=== PATIENT | female | born 1965 | race Caucasian/White ===

== ENCOUNTER 2016-09-02 09:38 | Emergency (ER) | payer MEDICAID ==
[2016-07-19 15:00] VITALS: BMI 27.5
[~2016-09-02 09:38] MED LIST: ASPIRIN325 MG PO; CELEXA40 MG PO; DESERYL100 MG PO; HYDROCHLOROTH12.5 M1 PO; HYDROCODONE-APA1 TAB PO; IBUPROFEN800 MG PO; NEURONTIN 300300 MG PO; PEPCID AC20 MG PO; REMERON15 MG PO; ROXICODONE15 MG PO; VOLTAREN100 MG PO
== END 2016-09-02 12:24 | disposition home or self-care (01) ==
LOC: D.ER 09:38
DX: S80.12XA Contusion of left lower leg, initial encounter (principal); W22.8XXA Striking against or struck by other objects, initial encounter; Y93.89 Activity, other specified; Y92.019 Unspecified place in single-family (private) house as the place of occurrence of the external cause; F17.200 Nicotine dependence, unspecified, uncomplicated

== ENCOUNTER → 2017-04-11 15:40 | Outpatient (CLI) | payer MEDICAID ==
[2016-07-19 15:00] VITALS: BMI 27.5
== END | disposition home or self-care (01) ==
LOC: D.MAMMO 15:00
DX: Z12.31 Encounter for screening mammogram for malignant neoplasm of breast (principal)

== ENCOUNTER → 2017-05-16 17:59 | Outpatient (CLI) | payer MEDICAID ==
[2016-07-19 15:00] VITALS: BMI 27.5
== END | disposition home or self-care (01) ==
LOC: D.MAMMO 10:30
DX: R92.8 Other abnormal and inconclusive findings on diagnostic imaging of breast (principal)

== ENCOUNTER 2017-06-20 00:16 | Emergency (ER) | payer MEDICAID ==
[2016-07-19 15:00] VITALS: BMI 27.5
[2017-06-20 00:51] LABS: BASOPHILS 0.5 % (0-2); EOSINOPHILS 2.8 % (0-7); HEMATOCRIT 42.4 % (36.0-48.0); HEMOGLOBIN 14.6 g/dL (12-16); IMMATURE GRANULOCYTES 0.4 % (0-5); LYMPHOCYTES 39.2 % (15-50); MCH 32.7 pg (26.0-34.0); MCHC 34.4 g/dL (31.0-37.0); MCV 95.1 fL (80.0-100.0); MEAN PLATELET VOLUME 10.6 fL (7.4-10.4); MONOCYTES 6.7 % (2-11); NEUTROPHILS 50.4 % (40-80); PLATELET COUNT 259 10x3/uL (130-400); RBC 4.46 10x6/uL (4.00-5.40); RDW 14.3 % (11.5-14.5); WBC 7.5 10x3/uL (4.8-10.8)
[2017-06-20 01:13] LABS: ALBUMIN 3.5 g/dL (3.4-5.0); ANION GAP 12.5 mmol/L (8-16); BILIRUBIN - TOTAL 0.2 mg/dL (0.2-1.3); CALCIUM 9.2 mg/dL (8.5-10.1); CARBON DIOXIDE 26.6 mmol/L (21.0-32.0); CREATININE - SERUM 0.9 mg/dL (0.6-1.3); POTASSIUM - SERUM 3.1 mmol/L (3.5-5.1); PROTEIN - SERUM 7.1 g/dL (6.4-8.2)
[2017-06-20 01:33] LABS: APPEARANCE CLEAR (CLEAR); BILIRUBIN NEGATIVE (NEGATIVE); COLOR STRAW (YELLOW); GLUCOSE NEGATIVE (NEGATIVE); KETONE NEGATIVE (NEGATIVE); NITRITE NEGATIVE (NEGATIVE); PROTEIN NEGATIVE (NEGATIVE); SPECIFIC GRAVITY 1.005 (1.005-1.020); UROBILINOGEN NORMAL (NORMAL)
[2017-06-20 01:34] LABS: BACTERIA MANY /hpf (NONE SEEN); EPITHELIAL CELLS 0-5 /hpf (0-5); RED CELLS - URINE 0-5 /hpf (0-5); UDS - AMPHET NEGATIVE QUAL (NEGATIVE); UDS - BARB NEGATIVE QUAL (NEGATIVE); UDS - BENZO NEGATIVE QUAL (NEGATIVE); UDS - COCAINE NEGATIVE QUAL (NEGATIVE); UDS - OPIATE NEGATIVE QUAL (NEGATIVE); UDS - PCP NEGATIVE QUAL (NEGATIVE); UDS - THC POSITIVE QUAL (NEGATIVE); WHITE CELLS - URINE 0-5 /hpf (0-5)
== END 2017-06-20 02:39 | disposition home or self-care (01) ==
LOC: D.ER 00:16
PROVIDERS: Emergency Medicine
DX: R55 Syncope and collapse (principal)

== ENCOUNTER 2017-07-27 10:15 | Emergency (ER) | payer MEDICAID ==
[2016-07-19 15:00] VITALS: BMI 27.5
[2017-07-27 10:41] LABS: BASOPHILS 0.3 % (0-2); EOSINOPHILS 1.3 % (0-7); HEMATOCRIT 40.9 % (36.0-48.0); HEMOGLOBIN 14.3 g/dL (12-16); IMMATURE GRANULOCYTES 0.4 % (0-5); LYMPHOCYTES 26.5 % (15-50); MCH 33.5 pg (26.0-34.0); MCV 95.8 fL (80.0-100.0); MEAN PLATELET VOLUME 11.3 fL (7.4-10.4); MONOCYTES 5.5 % (2-11); PLATELET COUNT 269 10x3/uL (130-400); RBC 4.27 10x6/uL (4.00-5.40); RDW 13.8 % (11.5-14.5); WBC 11.4 10x3/uL (4.8-10.8)
[2017-07-27 10:58] LABS: ALBUMIN 3.8 g/dL (3.4-5.0); ANION GAP 12.1 mmol/L (8-16); BILIRUBIN - TOTAL 0.23 mg/dL (0.2-1.3); CALCIUM 9.4 mg/dL (8.5-10.1); CARBON DIOXIDE 28.4 mmol/L (21.0-32.0); CREATININE - SERUM 0.9 mg/dL (0.6-1.3); POTASSIUM - SERUM 3.5 mmol/L (3.5-5.1); PROTEIN - SERUM 7.4 g/dL (6.4-8.2)
[2017-07-27 12:02] LABS: APPEARANCE CLEAR (CLEAR); BILIRUBIN NEGATIVE (NEGATIVE); COLOR YELLOW (YELLOW); GLUCOSE NEGATIVE (NEGATIVE); KETONE NEGATIVE (NEGATIVE); NITRITE NEGATIVE (NEGATIVE); PROTEIN NEGATIVE (NEGATIVE); SPECIFIC GRAVITY 1.005 (1.005-1.020); UROBILINOGEN NORMAL (NORMAL)
[2017-07-27 12:05] LABS: UDS - AMPHET NEGATIVE QUAL (NEGATIVE); UDS - BARB NEGATIVE QUAL (NEGATIVE); UDS - BENZO NEGATIVE QUAL (NEGATIVE); UDS - COCAINE NEGATIVE QUAL (NEGATIVE); UDS - OPIATE NEGATIVE QUAL (NEGATIVE); UDS - PCP NEGATIVE QUAL (NEGATIVE); UDS - THC POSITIVE QUAL (NEGATIVE)
== END 2017-07-27 15:50 | disposition short-term general hospital (02) ==
LOC: D.ER 10:15
PROVIDERS: Emergency Medicine
DX: F32.9 Major depressive disorder, single episode, unspecified (principal); Z86.59 Personal history of other mental and behavioral disorders; R45.851 Suicidal ideations

== ENCOUNTER 2017-08-04 22:54 | Emergency (ER) | payer MEDICAID ==
[2016-07-19 15:00] VITALS: BMI 27.5
[2017-08-04 23:28] LABS: APPEARANCE CLEAR (CLEAR); BILIRUBIN NEGATIVE (NEGATIVE); COLOR YELLOW (YELLOW); GLUCOSE NEGATIVE (NEGATIVE); KETONE NEGATIVE (NEGATIVE); NITRITE NEGATIVE (NEGATIVE); PROTEIN NEGATIVE (NEGATIVE); SPECIFIC GRAVITY 1.015 (1.005-1.020); UROBILINOGEN NORMAL (NORMAL)
[2017-08-04 23:36] LABS: UDS - AMPHET NEGATIVE QUAL (NEGATIVE); UDS - BARB NEGATIVE QUAL (NEGATIVE); UDS - BENZO NEGATIVE QUAL (NEGATIVE); UDS - COCAINE NEGATIVE QUAL (NEGATIVE); UDS - OPIATE NEGATIVE QUAL (NEGATIVE); UDS - PCP NEGATIVE QUAL (NEGATIVE); UDS - THC NEGATIVE QUAL (NEGATIVE)
[2017-08-04 23:42] LABS: BASOPHILS 0.7 % (0-2); EOSINOPHILS 1.6 % (0-7); HEMATOCRIT 41.5 % (36.0-48.0); HEMOGLOBIN 14.3 g/dL (12-16); IMMATURE GRANULOCYTES 0.1 % (0-5); MCH 33.2 pg (26.0-34.0); MCHC 34.5 g/dL (31.0-37.0); MCV 96.3 fL (80.0-100.0); MONOCYTES 5.9 % (2-11); NEUTROPHILS 52.7 % (40-80); PLATELET COUNT 206 10x3/uL (130-400); RBC 4.31 10x6/uL (4.00-5.40); RDW 13.3 % (11.5-14.5)
[2017-08-05 00:04] LABS: ALBUMIN 3.5 g/dL (3.4-5.0); BILIRUBIN - TOTAL 0.15 mg/dL (0.2-1.3); CALCIUM 8.8 mg/dL (8.5-10.1); CARBON DIOXIDE 26.6 mmol/L (21.0-32.0); POTASSIUM - SERUM 3.6 mmol/L (3.5-5.1); PROTEIN - SERUM 7.1 g/dL (6.4-8.2)
== END 2017-08-05 04:48 | disposition home or self-care (01) ==
LOC: D.ER 22:54
PROVIDERS: Family Medicine
DX: R45.851 Suicidal ideations (principal); Z86.59 Personal history of other mental and behavioral disorders

== ENCOUNTER → 2017-11-28 16:49 | Outpatient (CLI) | payer MEDICAID ==
[2016-07-19 15:00] VITALS: BMI 27.5
== END | disposition home or self-care (01) ==
LOC: D.MAMMO 10:30
DX: R92.8 Other abnormal and inconclusive findings on diagnostic imaging of breast (principal)

== ENCOUNTER 2017-12-16 17:02 | Emergency (ER) | payer MEDICAID ==
[2016-07-19 15:00] VITALS: BMI 27.5
[2017-12-16 17:49] LABS: BASOPHILS 0.5 % (0-2); HEMATOCRIT 31.5 % (36.0-48.0); HEMOGLOBIN 10.6 g/dL (12-16); LYMPHOCYTES 31.8 % (15-50); MCH 32.1 pg (26.0-34.0); MCHC 33.7 g/dL (31.0-37.0); MCV 95.5 fL (80.0-100.0); MONOCYTES 8.4 % (2-11); NEUTROPHILS 54.3 % (40-80); PLATELET COUNT 523 10x3/uL (130-400); RDW 14.6 % (11.5-14.5); WBC 8.2 10x3/uL (4.8-10.8)
== END 2017-12-16 19:07 | disposition home or self-care (01) ==
LOC: D.ER 17:02
PROVIDERS: Emergency Medicine
DX: L76.22 Postprocedural hemorrhage of skin and subcutaneous tissue following other procedure (principal); F17.200 Nicotine dependence, unspecified, uncomplicated

== ENCOUNTER 2018-06-02 23:56 | Inpatient (IN) | payer MEDICAID ==
[~2018-06-02] VITALS: Ht 168.9 cm; Wt 77.6 kg
--- NOTE | ~2018-06-02 | MORECARE ---
CASE MANAGEMENT DISCHARGE SUMMARY PATIENT: GERRY BERNAL DIANDRA UNIT: [id number] ADM DATE: 06/03/18 AGE: 53 : 65 SEX: F ROOM/BED: D.2312 AUTHOR: BALJIT SILVEIRA PHYSICIAN: REFERRING PHYSICIAN: GIL DAVIS MD DATE OF SERVICE: 06/05/18 Discharge Plan Patient Name: GERRY BERNAL [facility] [facility] 1965 Planned Disposition: Anticipated Discharge Date: Discharge Date: 06/04/2018 Expected LOS: Initial Reviewer: [email or web address] Initial Review Date: 06/03/2018 Generated: 06/05/18 7:34 pm Comments DCP- Discharge Planning Updated by [email or web address]: Rebecca Derrick on 06/04/18 1:[address] CM spoke with patient she agrees to go to inpatient psychiatric facility. Transfer center notified and clinical faxed. CM awaiting placement notification. CM will continue to follow and assist as needed with discharge palnning / needs. Last DP export: 06/04/18 1:44 p Patient Name: GERRY BERNAL Page [id number] at 1834 All edits/amendments must be made on the electronic document DICTATION DATE: 06/05/181833 COUPLING MACHINE OPERATOR: COOPER 06/05/181833 RPT#: [id number] DC DATE:06/04/18 STATUS: DIS IN [facility] [address] [place] [address] END OF REPORT
--- NOTE | ~2018-06-02 | CN ---
PATIENT NAME:GERRY BERNAL MEDICAL RECORD: [id number] : 65 LOCATION:[facility].2312 ADMIT DATE: 06/03/18 ACCOUNT: [id number] CONSULTING PHYSICIAN: KRISTINA REARDON MD REFERRING PHYSICIAN: GIL DAVIS MD DATE OF CONSULTATION: 06/03/2018 IDENTIFYING DATA: The patient is 53 years old and she is admitted to the hospital on a voluntary basis secondary to an overdose. CHIEF COMPLAINT: The patient endorses numerous neurovegetative symptoms and numerous psychosocial stressors. She apparently deliberately took an overdose of Klonopin and Zanaflex with the intention of killing herself. She stated she wanted to kill herself in the Emergency Room. She was found by one of her children unresponsive and they called the emergency services. The patient is severely depressed, very angry, has numerous complaints about her family and their behavior and her own personal situation, which she is unhappy about. MENTAL STATUS EXAMINATION: The patient is awake, alert and oriented to person, place, time and situation. Her mood is depressed. Her affect is constricted. Thought processes are circumstantial. Memory, concentration, and abstraction abilities are moderately impaired, and she denies any active intent to harm herself or others at this time. She also denies psychotic symptoms. ASSESSMENT: 1. Status post polysubstance overdose. 2. Major depression. 3. Probable cluster B personality disorder. PLAN: The patient at this time has taken a very serious overdose and continues to have no improvement or insight about her situation or the psychosocial stressors associated with it. She does have a history of previous overdose and in my opinion needs to be sent to inpatient psychiatric care once medically stabilized. Her long-term prognosis will be guarded and will be largely based upon the results and outcome of her treatment. TRANSINT:[id number] Voice Confirmation ID: [id number] DOCUMENT ID: [id number] KRISTINA REARDON MD at 1017 CC: [id number] DICTATION DATE: 06/03/18 1245 SENIOR STAFF PSYCHOLOGIST: 06/03/18 1307 ADM IN [place] [id number] [place] [address]
--- NOTE | ~2018-06-02 | MORECARE ---
CASE MANAGEMENT DISCHARGE SUMMARY PATIENT: GERRY BERNAL DIANDRA UNIT: [id number] ADM DATE: 06/03/18 AGE: 53 : 65 SEX: F ROOM/BED: D.2312 AUTHOR: BALJIT SILVEIRA PHYSICIAN: REFERRING PHYSICIAN: GIL DAVIS MD DATE OF SERVICE: 06/04/18 Discharge Plan Patient Name: GERRY BERNAL [facility] : 1965 Planned Disposition: Anticipated Discharge Date: Discharge Date: Expected LOS: Initial Reviewer: [email or web address] Initial Review Date: 06/03/2018 Generated: 06/04/18 3:44 pm Comments DCP- Discharge Planning Updated by [email or web address]: Rebecca Derrick on 06/04/18 1:[address] CM spoke with patient she agrees to go to inpatient psychiatric facility. Transfer center notified and clinical faxed. CM awaiting placement notification. CM will continue to follow and assist as needed with discharge palnning / needs. External Providers External Provider: [facility] Next Contact Date: Service Request Date: Service Type: Resolution: Reviewer: Comments: Patient Name: GERRY BERNAL Page [phone] at 1444 All edits/amendments must be made on the electronic document DICTATION DATE: 06/04/181442 ENGINE EMISSION TECHNICIAN: COOPER 06/04/18 1443 RPT#: [id number] DC DATE: STATUS: ADM IN [facility] [address] [place] [address] END OF REPORT
[2018-06-03] VITALS (86 sets, daily range): BP systolic 68–136; BP diastolic 35–92; Ht 168.9 cm; Wt 77.6 kg
[2018-06-03 00:14] LABS: BASOPHILS 0.5 % (0-2); EOSINOPHILS 1.2 % (0-7); HEMATOCRIT 33.7 % (36.0-48.0); HEMOGLOBIN 11.5 g/dL (12-16); IMMATURE GRANULOCYTES 0.5 % (0-5); LYMPHOCYTES 39.8 % (15-50); MCH 32.3 pg (26.0-34.0); MCHC 34.1 g/dL (31.0-37.0); MCV 94.7 fL (80.0-100.0); MEAN PLATELET VOLUME 9.9 fL (7.4-10.4); MONOCYTES 9.1 % (2-11); NEUTROPHILS 48.9 % (40-80); PLATELET COUNT 223 10x3/uL (130-400); RBC 3.56 10x6/uL (4.00-5.40); RDW 14.2 % (11.5-14.5); WBC 6.5 10x3/uL (4.8-10.8)
[2018-06-03 00:16] LABS: APPEARANCE CLEAR (CLEAR); BILIRUBIN NEGATIVE (NEGATIVE); COLOR YELLOW (YELLOW); GLUCOSE NEGATIVE (NEGATIVE); KETONE NEGATIVE (NEGATIVE); NITRITE NEGATIVE (NEGATIVE); PROTEIN NEGATIVE (NEGATIVE); UROBILINOGEN NORMAL (NORMAL)
[2018-06-03 00:20] LABS: ALBUMIN 2.5 g/dL (3.4-5.0); ANION GAP 13.6 mmol/L (8-16); BILIRUBIN - TOTAL 0.12 mg/dL (0.2-1.3); CALCIUM 7.3 mg/dL (8.5-10.1); CARBON DIOXIDE 21.5 mmol/L (21.0-32.0); CREATININE - SERUM 0.9 mg/dL (0.6-1.3); POTASSIUM - SERUM 3.1 mmol/L (3.5-5.1); PROTEIN - SERUM 5.4 g/dL (6.4-8.2)
[2018-06-03] MEDS ORDERED: REXULTI1 MG PO (00:49)
[2018-06-03] MEDS ORDERED: HYDROCODON-ACE1 EAC7 PO (00:49)
[2018-06-03] MEDS ORDERED: ALENDRONATE SOD70 MG PO (00:49)
[2018-06-03] MEDS ORDERED: VIBRAMYCIN 100100 MG PO (00:50)
[2018-06-03 02:11] LABS: UDS - AMPHET NEGATIVE QUAL (NEGATIVE); UDS - BARB NEGATIVE QUAL (NEGATIVE); UDS - BENZO NEGATIVE QUAL (NEGATIVE); UDS - COCAINE NEGATIVE QUAL (NEGATIVE); UDS - OPIATE NEGATIVE QUAL (NEGATIVE); UDS - PCP NEGATIVE QUAL (NEGATIVE); UDS - THC NEGATIVE QUAL (NEGATIVE)
[2018-06-03] MEDS ORDERED: KLONOPIN1 MG PO (10:58)
[2018-06-03] MEDS ORDERED: IBUPROFEN800 MG PO (10:58)
[2018-06-03] MEDS ORDERED: SEROQUEL200 MG PO (10:59)
[2018-06-03] MEDS ORDERED: ZANAFLEX4 MG PO (11:00)
[2018-06-03] MEDS ORDERED: DEPAKOTE500 MG PO (11:00)
[2018-06-03] MEDS ORDERED: MOBIC7.5 MG PO (11:00)
[2018-06-04] VITALS (38 sets, daily range): BP systolic 106–152; BP diastolic 45–106
[2018-06-04 05:09] LABS: BASOPHILS 0.7 % (0-2); EOSINOPHILS 1.8 % (0-7); HEMATOCRIT 37.6 % (36.0-48.0); HEMOGLOBIN 12.5 g/dL (12-16); IMMATURE GRANULOCYTES 0.2 % (0-5); MCH 31.4 pg (26.0-34.0); MCHC 33.2 g/dL (31.0-37.0); MCV 94.5 fL (80.0-100.0); MEAN PLATELET VOLUME 10.9 fL (7.4-10.4); NEUTROPHILS 43.3 % (40-80); RBC 3.98 10x6/uL (4.00-5.40); RDW 14.5 % (11.5-14.5)
[2018-06-04 05:17] LABS: PLATELET COUNT 272 10x3/uL (130-400)
[2018-06-04 05:28] LABS: ALBUMIN 2.6 g/dL (3.4-5.0); ALKALINE PHOSPHATASE 70 U/L (46-116); ALT (SGPT) 12 U/L (10-68); BILIRUBIN - TOTAL 0.14 mg/dL (0.2-1.3); CALCIUM 8.2 mg/dL (8.5-10.1); CHLORIDE - SERUM 107 mmol/L (98-107); CREATININE - SERUM 0.7 mg/dL (0.6-1.3); MAGNESIUM - SERUM 1.7 mg/dL (1.8-2.4); PHOSPHOROUS 3.4 mg/dL (2.5-4.9); POTASSIUM - SERUM 3.2 mmol/L (3.5-5.1); PROTEIN - SERUM 5.9 g/dL (6.4-8.2); SODIUM 141 mmol/L (136-145); eGFR NON AFRICAN AMERICAN > 90 mL/min (90-120)
[2018-06-04 05:34] LABS: CALC OSMOLALITY 282 mosm/kg (275-300); GLUCOSE 146 mg/dL (74-106); UREA NITROGEN 9 mg/dL (7-18)
== END 2018-06-04 18:40 | disposition short-term general hospital (02) | DRG 918 ==
LOC: D.ER 23:56 → D.ICU 06-03 00:48
PROVIDERS: Emergency Medicine; Family Medicine
DX: T42.4X2A Poisoning by benzodiazepines, intentional self-harm, initial encounter (principal); E87.2 Acidosis; T42.8X2A Poisoning by antiparkinsonism drugs and other central muscle-tone depressants, intentional self-harm, initial encounter; F32.9 Major depressive disorder, single episode, unspecified; I95.9 Hypotension, unspecified; G89.29 Other chronic pain; M19.90 Unspecified osteoarthritis, unspecified site; I10 Essential (primary) hypertension; F41.9 Anxiety disorder, unspecified

== ENCOUNTER 2018-06-30 01:28 | Emergency (ER) | payer MEDICAID ==
[~2018-06-30] VITALS: Ht 168.9 cm; Wt 74.8 kg
[~2018-06-30 01:28] MED LIST changes: +ALENDRONATE SOD70 MG PO; +DEPAKOTE500 MG PO; +HYDROCODON-ACE1 EAC7 PO; +KLONOPIN1 MG PO; +MOBIC7.5 MG PO; +REXULTI1 MG PO; +SEROQUEL200 MG PO; +VIBRAMYCIN 100100 MG PO; +ZANAFLEX4 MG PO
[2018-06-30 01:34] VITALS: Ht 168.9 cm; Wt 74.8 kg
[2018-06-30 02:15] LABS: BASOPHILS 0.6 % (0-2); EOSINOPHILS 1.6 % (0-7); HEMATOCRIT 42.6 % (36.0-48.0); HEMOGLOBIN 15.4 g/dL (12-16); IMMATURE GRANULOCYTES 0.1 % (0-5); LYMPHOCYTES 46.3 % (15-50); MCH 33.2 pg (26.0-34.0); MCHC 36.2 g/dL (31.0-37.0); MCV 91.8 fL (80.0-100.0); MEAN PLATELET VOLUME 10.4 fL (7.4-10.4); MONOCYTES 6.4 % (2-11); PLATELET COUNT 268 10x3/uL (130-400); RBC 4.64 10x6/uL (4.00-5.40); RDW 14.3 % (11.5-14.5); WBC 6.7 10x3/uL (4.8-10.8)
[2018-06-30 02:34] LABS: ALBUMIN 3.7 g/dL (3.4-5.0); ALKALINE PHOSPHATASE 84 U/L (46-116); ALT (SGPT) 17 U/L (10-68); BILIRUBIN - TOTAL 0.17 mg/dL (0.2-1.3); CALC OSMOLALITY 262 mosm/kg (275-300); CALCIUM 9.2 mg/dL (8.5-10.1); CARBON DIOXIDE 25.7 mmol/L (21.0-32.0); CHLORIDE - SERUM 95 mmol/L (98-107); CREATININE - SERUM 0.7 mg/dL (0.6-1.3); GLUCOSE 105 mg/dL (74-106); PROTEIN - SERUM 7.9 g/dL (6.4-8.2); SODIUM 132 mmol/L (136-145); UREA NITROGEN 7 mg/dL (7-18); eGFR NON AFRICAN AMERICAN > 90 mL/min (90-120)
[2018-06-30 02:35] LABS: MAGNESIUM - SERUM 1.7 mg/dL (1.8-2.4)
[2018-06-30 03:31] LABS: APPEARANCE CLEAR (CLEAR); BILIRUBIN NEGATIVE (NEGATIVE); COLOR YELLOW (YELLOW); GLUCOSE NEGATIVE (NEGATIVE); KETONE NEGATIVE (NEGATIVE); NITRITE NEGATIVE (NEGATIVE); PROTEIN NEGATIVE (NEGATIVE); SPECIFIC GRAVITY 1.015 (1.005-1.020); UROBILINOGEN NORMAL (NORMAL)
[2018-06-30 03:33] LABS: UDS - AMPHET NEGATIVE QUAL (NEGATIVE); UDS - BARB NEGATIVE QUAL (NEGATIVE); UDS - BENZO NEGATIVE QUAL (NEGATIVE); UDS - COCAINE NEGATIVE QUAL (NEGATIVE); UDS - OPIATE NEGATIVE QUAL (NEGATIVE); UDS - PCP NEGATIVE QUAL (NEGATIVE); UDS - THC NEGATIVE QUAL (NEGATIVE)
[2018-06-30 09:02] VITALS: BP 114/87
== END 2018-06-30 09:03 ==
LOC: D.ER 01:28
PROVIDERS: Family Medicine
DX: F31.9 Bipolar disorder, unspecified (principal); T14.91XA Suicide attempt, initial encounter; X83.8XXA Intentional self-harm by other specified means, initial encounter; Y93.89 Activity, other specified; Y92.019 Unspecified place in single-family (private) house as the place of occurrence of the external cause; I10 Essential (primary) hypertension; Z81.8 Family history of other mental and behavioral disorders

== ENCOUNTER → 2018-10-08 19:50 | Outpatient (CLI) | payer MEDICAID ==
[2018-06-30 01:34] VITALS: BMI 27.2
[~2018-10-08 19:50] MED LIST changes: +CIPRO500 MG PO; +ROPINIROLE HCL2 MG PO
== END | disposition home or self-care (01) ==
LOC: D.LABREF 19:50
PROVIDERS: ATTEND Urology
DX: R82.998 Other abnormal findings in urine (principal)

== ENCOUNTER 2018-10-11 09:42 | Day surgery (SDC) | payer MEDICAID ==
[~2018-10-11] VITALS: Ht 168.9 cm; Wt 73.5 kg
[~2018-10-11 09:42] MED LIST changes: -CIPRO500 MG PO
[2018-10-11 10:32] LABS: HEMATOCRIT 42.8 % (36.0-48.0); HEMOGLOBIN 15.1 g/dL (12-16); MCH 33.4 pg (26.0-34.0); MCHC 35.3 g/dL (31.0-37.0); MCV 94.7 fL (80.0-100.0); RBC 4.52 10x6/uL (4.00-5.40); RDW 16.8 % (11.5-14.5); WBC 6.8 10x3/uL (4.8-10.8)
[2018-10-11] MEDS ORDERED: CIPRO500 MG PO (10:49)
[2018-10-11 11:01] VITALS: BP 143/76; Ht 168.9 cm; Wt 73.5 kg
--- NOTE | 2018-10-11 14:27 | NUR ---
PATIENT VOIDED 200CC IN BEDPAIN WHILE IN PACU.
--- NOTE | 2018-10-11 14:40 | NUR ---
REC'D FROM RR. FAMILY AT BEDSIDE. COFFEE BROUGHT TO PT WITH A FL TRAY AND ICE WATER. VOIDED 200ML IN RR. XENIES NEEDS.
--- NOTE | 2018-10-11 15:10 | NUR ---
TOLERATED FL DIET. FAMILY AT BEDSIDE.
--- NOTE | 2018-10-11 15:37 | NUR ---
TOLERATED FL TRAY. IV DC'D WITH CATHETER INTACT. AMBULATED TO BATHROOM. VOIDING WITHOUT DIFFICULTY. FAMILY AT BEDSIDE,
--- NOTE | 2018-10-11 15:40 | NUR ---
IV DC'D WITH CATHETER INTACT. AMBULATED TO BATHROOM AND VOIDED WITHOUT DIFFICULTY.
--- NOTE | 2018-10-11 15:50 | NUR ---
WRITTEN AND VERBAL DC INST. GIVEN TO PT ALONG WITH RX. VERBALIZED UNDERSTANDING.
--- NOTE | 2018-10-11 16:00 | NUR ---
DC'D HOME WITH FAMILY VIA PRIVATE VEHICLE. TAKEN TO VEHICLE VIA WC. STABLE AT TIME OF DC.
--- NOTE | 2018-10-12 08:05 | OP ---
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 PROCEDURE: Cystoscopy, bilateral retrograde pyelograms, left ureteroscopy and stone extraction, right ureteroscopy, bilateral ureteral stent insertion, 6-Kittitian x 24 cm with strings attached. FINDINGS: On cystoscopy, single ureteral orifices bilaterally. No bladder tumors were seen. On bilateral retrograde pyelograms, the left side shows a radiodense distal ureteral stone with proximal hydronephrosis. There is very little contrast that was able to get beyond the stone indicating high degree of obstruction. On the right side, the ureter shows medial deviation with angulation of the ureter at the level of the sacral ala. There is hydroureteronephrosis proximal to this point. No tumor was seen on ureteroscopy. SPECIMENS: Left ureteral stone. ESTIMATED BLOOD LOSS: None. CLINICAL HISTORY: This is a 53-year-old female, who was referred with left flank pain and gross hematuria. She had a CT scan of the abdomen and pelvis without contrast on 09/25/2018. This shows a 2 mm nonobstructive left renal stone and left hydroureteronephrosis due to a 5.5 mm stone in the left UV junction. The left kidney is relatively atrophic. On the right side, there are no renal stones. 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 She is a smoker, smoking up to 1 pack per day since age 9. She still continues to smoke. SHE IS ALLERGIC TO BACTRIM, CEFACLOR, SILVER SULFADIAZINE AND VISTARIL. She was given Levaquin rural electrification engineer to the OR. DESCRIPTION OF PROCEDURE: The patient was given induction of general anesthesia. She was placed in the dorsal lithotomy position and prepped and draped. Fluoroscopy revealed some possible radiodensity in the left pelvis which may be the ureteral stone. The scope was introduced. Findings are as outlined above. We introduced a 5-Kittitian open-ended ureteral catheter into the left ureter and performed a retrograde pyelogram. The radiodensity representing the stone was immediately obvious. Very little contrast managed to go proximal to the stone on the retrograde pyelogram. Through the lumen of the open-ended ureteral catheter, we inserted a Sensor wire. This went all the way up to the renal pelvis. We then dilated the ureteral orifice with a 21-Kittitian x 4 cm ureteral dilation balloon. This was dilated to 14 atmospheres of pressure for a few seconds and then the balloon was deflated and removed. We then switched to the rigid ureteroscope. The stone was immediately seen. A 4-0 wire 0-tip basket was placed around the stone and the stone was completely removed. We then loaded the Sensor wire back onto the cystoscope. Over the wire, we OPERATIVE REPORT [id number] GERRY BERNAL inserted the 6-Kittitian x 24 cm ureteral stent. Once the stent was in correct position, the wire was gradually withdrawn allowing the proximal end of the stent to coil. The distal end was pushed out of the scope using a pusher. It was finally seen to coil in the appropriate direction in the left ureteral orifice. The string on the distal end of the stent was maintained. It was allowed to come out of the urethra and the tape to the suprapubic region. We did the same thing on the right side. On the right side, there is medial deviation of the ureter on the retrograde pyelogram. There is what appears to be almost a kink in the ureter just above the sacral ala. At this point, the ureters very medially deviated and there was hydronephrosis proximal to it. Again, we inserted the Sensor wire into the renal pelvis. The ureteral orifice was dilated with a 21-Kittitian balloon for a few seconds with 14 atmospheres of pressure. We then introduced the ureteroscope. We visualized the entire ureter all the way from the bladder, ureteral orifice all the way up to the renal pelvis. No tumors of any kind were seen. The ureteroscope was then removed. Over the wire, we inserted a 6-Kittitian x 24 cm ureteral stent. Once the stent was in correct position, the wire was completely withdrawn. The distal end of the stent was pushed into the bladder using a pusher. The bladder was then emptied through the scope, sheath, and the scope was removed. The string from this stent also comes out of the urethra. Both his stent strings were taped to the suprapubic area with a small piece of Tegaderm. The patient will be going home today. I will see her in followup next week to remove the stents by pulling on both the strings. I will obtain a Lasix renal scan without a stent in place to verify obstruction of the right kidney. If that does show obstruction, then she will need a right ureteral stent and most likely a right ureterolysis to free it from adhesions. TRANSINT:[id number] Voice Confirmation ID: [id number] DOCUMENT ID: [id number] GAUTAM MAYO MD at 0805 CC: [id number] DICTATION DATE: 10/11/18 1348 [employer] [facility] M[employer]ER: 10/11/18 2221 [facility] 10/11/18 [id number] [place] [address]
== END 2018-10-11 16:00 | disposition home or self-care (01) ==
LOC: D.OPS 09:42 → D.PAN 13:00 → D.OPS 16:00
PROVIDERS: Anesthesiology; ATTEND Urology
DX: N13.5 Crossing vessel and stricture of ureter without hydronephrosis (principal); N20.1 Calculus of ureter; R31.0 Gross hematuria; F17.210 Nicotine dependence, cigarettes, uncomplicated; Z88.1 Allergy status to other antibiotic agents; Z88.2 Allergy status to sulfonamides

== ENCOUNTER 2018-10-18 10:59 | Outpatient (CLI) | payer MEDICAID ==
[~2018-10-18] VITALS: Ht 168.9 cm; Wt 73.6 kg
--- NOTE | ~2018-10-18 | HEMODYNAMI ---
PATIENT:GERRY BERNAL MEDICAL RECORD: [id number] : 65 LOCATION:[facility] ADMISSION DATE: 10/18/18 Generatedon:10/18/201814:39 Patient name: GERRY BERNAL Patient #: [id number] SSN: : 1965 Date of study: 10/18/2018 Page: Of Hemodynamic Procedure Report Patient Data Patient Demographics Procedure consent was obtained First Name: GERRY Gender: Female Last Name: GABE : 1965 [facility] Initial: DIANDRA Age: 53 year(s) Patient #: [id number] Race: Unknown Additional ID: [id number] Contact details [address]: [address] [place] [address] State: [place] City: [place] Zip code: [address] Admission Admission Data Admission Date: 10/18/2018 Admission Time: 10:59 Weight (lbs.): 163.14 Weight (kg.): 74 Lab Results Lab Result Date: 10/18/2018 Lab Result Time: 0:00 Biochemistry Name Units Result Min Max BUN mg/dl 11 --(-*--)-- 7 18 Creatinine mg/dl 0.9 --(-*--)-- 0.6 1.3 CBC Name Units Result Min Max Hemoglobin g/dl 13.1 -*(----)-- 13.5 17.5 Procedure Procedure Types Cath Procedure Diagnostic Procedure [facility] w/Coronaries PCI Procedure Coronary Stent Coronary Stent Initial Peripheral Cath Diagnostic Procedure Membership Sales Manager Peripheral Procedures Four Vessel Arteriogram Procedure Description Procedure Date Procedure Date: 10/18/2018 Procedure Start Time: 14:19 Procedure End Time: 14:35 Procedure Staff Name Function Aj Tai MD Performing Physician Hussain Trujillo RT Monitor Jamal Jaime RN Nurse Swati Oliva RT Scrub Procedure Data Cath Procedure Fluoroscopy Diagnostic fluoroscopy Total fluoroscopy Time: 3.4 time: 3.4 min min Diagnostic fluoroscopy Total fluoroscopy dose: 545 dose: 545 mGy mGy Contrast Material Contrast Material Type Amount (ml) Isovue 300 107 Entry Location Entry Primary Successful Side Size Upsize Upsize Entry Closure Succes sful Closure Location (Fr) 1 (Fr) 2 (Fr) Remarks Device Remarks Femoral Right 5 Fr 6 Fr Exoseal artery Short Estimated blood loss: 10 ml Diagnostic catheters Device Type Used For End Catheter Placement MULTIPACK JL 4.0 5Fr Procedure catheter MULTIPACK 3DRC 5Fr Procedure catheter MULTIPACK Pigtail 5 Fr Procedure catheter Procedure Complications No complications Procedure Medications Medication Administration Route Dosage Oxygen etCO2 Nasal cannula 2 l/min Lidocaine 2% added to field 20 Heparin Flush Bag added to field 2 bags (1000units/500ml NS) 0.9% NaCl I.V. 100 ml/hr Versed I.V. 2 mg Fentanyl I.V. 100 mcg Versed I.V. 2 mg Fentanyl I.V. 100 mcg Versed I.V. 1 mg Fentanyl I.V. 50 mcg Versed I.V. 1 mg Fentanyl I.V. 50 mcg Heparin Bolus I.V. 4000 units Integrilin (Bolus I.V. 6.8 ml 2mg/ml) Plavix P.O. 600 mg Hemodynamics Rest HGB: 13.1 (g/dl) Heart Rate: 51 (bpm) Pressure Samples Time Site Value (mmHg) Purpose Heart Use Rate(bpm) 14:25 LV 122/8,23 Snapshot 65 Gradients Valve Time Site Site Mean SEP/DFP Peak To Heart Use 1 2 (mmHg) (sec/min) Peak Rate (mmHg) (bpm) Aortic 14:25 LV AO 63 Snapshots Pre Cath Intra NCS Post Cath Vital Signs Time Heart Resp SPO2 etCO2 NIBP Rhythm Pain Sedation Rate (ipm) (%) (mmHg) (mmHg) Status Level (bpm) 14:05:54 48 19 100 23.3 111/64(81) SB 0 (11) 10(A) , No pain 14:10:02 50 19 100 24.8 114/55(85) SB 0 (11) 10(A) , No pain 14:14:07 48 20 99 30.8 109/66(83) SB 0 (11) 10(A) , No pain 14:18:11 56 16 98 36.8 111/68(89) SB 0 (11) 10(A) , No pain 14:22:13 57 27 98 30.8 116/72(90) NSR 0 (11) 10(A) , No pain 14:26:17 63 14 97 36.1 111/71(88) NSR 0 (11) 10(A) , No pain 14:30:22 64 45 97 39.8 102/61(78) NSR 0 (11) 10(A) , No pain 14:34:24 65 18 97 47.4 108/63(80) NSR 0 (11) 10(A) , No pain Medications Time Medication Route Dose Verified Delivered Reason Notes Effectiveness by by 14:04:12 Oxygen etCO2 2 Aj Buffie used for Nasal l/min St Yossi Jaime RN procedure cannula 14:11:44 Versed I.V. 2 mg Aj Buffie for sedation St Yossi Jaime RN, MD 14:11:51 Fentanyl I.V. 100 Aj Buffie for sedation [facility] St Yossi Jaime RN, MD 14:14:19 Lidocaine 2% added 20ml Aj Aj for local to vial [facility] anesthetic field MD LACKEY 14:14:26 Heparin Flush added 2 Aj Aj used for Bag to bags [facility] procedure (1000units/500ml field MD LACKEY NS) 14:14:34 0.9% NaCl I.V. 100 Aj Buffie Per physician ml/hr St Yossi Jaime RN, MD 14:15:26 Versed I.V. 2 mg Aj Buffie for sedation St Yossi Jaime RN, MD 14:15:30 Fentanyl I.V. 100 Aj Buffie for sedation josiah Heath RN, MD 14:21:30 Versed I.V. 1 mg Aj Buffie for sedation St Yossi Jaime RN, MD 14:21:34 Fentanyl I.V. 50 Aj Buffie for sedation mcg St Yossi Jaime RN, MD 14:25:43 Versed I.V. 1 mg Aj Buffie for sedation St Yossi Jaime RN, MD 14:25:46 Fentanyl I.V. 50 Aj Buffie for sedation josiah Heath RN, MD 14:27:36 Heparin Bolus I.V. 4000 Aj Buffie for verif ied units St Yossi Jaime RN anticoagulation with dr MD simmons 14:29:10 Integrilin I.V. 6.8 Aj Arandaie for Waste d (Bolus 2mg/ml) ml St Yossi Jaime RN antiplatelet 3.2 ml therapy of vial 14:35:03 Plavix P.O. [address] mg [address] Yossi Jaime RN antiplatelet MD therapy Procedure Log Time Note 13:49:26 Hussain Trujillo RT(R) sent for patient. Start room use. 13:49:27 Time tracking: Regular hours (M-F 7:00 - 5:00) 13:49:30 Plan of Care:Hemodynamics will remain stable., Cardiac rhythm will remain stable., Comfort level will be maintained., Respiratory function will remain adequate., Patient/ family verbilizes understanding of procedure., Procedure tolerated without complication., Recovers from procedure without complications.. 13:57:19 Patient received from ED to CCL 2 Alert and oriented. Tansferred to table in Supine position. 13:57:20 Warm blankets applied, and power hugger turned on for patient comfort. 13:57:20 Correct patient and procedure confirmed by team. 13:57:22 Signed procedure consent form obtained from patient. 13:57:22 ECG and BP/O2 sat monitors applied to patient. 13:57:23 Full Disclosure recording started 14:04:12 Oxygen 2 l/min etCO2 Nasal cannula was administered by Jamal Jaime RN; used for procedure; 14:04:48 Vital chart was started 14:04:49 Baseline sample Acquired. 14:05:17 Rhythm: sinus bradycardia 14:05:31 H&P Date Dictated: 10/18/2018 Emergent; H&P N/A. 14:05:32 Pre-procedure instructions explained to patient. 14:05:32 Pre-op teaching completed and patient verbalized understanding. 14:05:35 Family unavailable. 14:05:36 Patient NPO since Midnight. 14:06:51 Is the patient allergic to Iodine/contrast media? No. 14:06:53 Is patient on blood thinner?No 14:06:55 Patient diabetic? No. 14:06:58 Previous problem with sedation/anesthesia? No ? 14:06:59 Snore? Yes 14:07:01 Sleep apnea? No 14:07:02 Deviated septum? No 14:07:03 Opens mouth fully? Yes 14:07:04 Sticks out tongue? Yes 14:07:06 Airway obstruction? No ? 14:07:09 Dentures? No ? 14:07:20 Pre procedure: right dorsailis pedis pulse 1+ Palpable, but thready & weak; easily obliterated 14:07:22 Patient pain scale 0/10 ?. 14:07:41 IV patent on arrival in left forearm with 0.9% NaCl at O. 14:07:43 Lab results completed and on chart. 14:07:47 Right groin area was prepped with chlora-prep and draped in sterile fashion 14:07:49 Alarms reviewed by R. N. 14:07:49 Sharps counted by scrub and verified by R.N. 14:07:56 Use device set Femoral Dx 14:07:59 Tegaderm 4 x 4 ([id number]) opened to sterile field. 14:08:00 ACIST Manifold (58176) opened to sterile field. 14:08:00 ACIST Hand Control (35878) opened to sterile field. 14:08:02 ACIST Syringe (26349) opened to sterile field. 14:08:02 Bag Decanter (2002S) opened to sterile field. 14:08:02 Medline Cath Pack ([id number]) opened to sterile field. 14:08:03 DIAGNOSTIC WIRE .035 260cm J wire (170642) opened to sterile field. 14:08:04 DIAGNOSTIC Multipack 5Fr catheter set (TH3770) opened to sterile field. 14:08:06 SHEATH 5FR Emery (CDM192) opened to sterile field. 14:10:26 --------ALL STOP TIME OUT------ 14:10:27 Final Timeout: patient, procedure, and site verified with staff and physician. All members of the team are in agreement. 14:10:29 Right groin site verified by team. 14:10:34 Maximum allowable Isovue 300 dose 300ml. Physician notified. (300ml for normal creatinines. For patients with creatinine of 1.7 or higher multiply weight(kg) x 5 divided by creatinine.) 14:10:42 Fire Safety Assessment: A--An alcohol-based skin anteseptic being used preoperatively., C--Open oxygen or nitrous oxide is being used., D--An ESU, laser, or fiber-optic light is being used. 14:10:46 Physical assessment completed. ASA score P 2 - A patient with mild systemic disease as per Aj Tai MD. 14:10:49 Sedation plan: IV Moderate Sedation Medication:Versed, Fentanyl 14:11:44 Versed 2 mg I.V. was administered by Jamal Jaime RN; for sedation; 14:11:51 Fentanyl 100 mcg I.V. was administered by Jamal Jaime RN; for sedation; 14:13:59 Patient Weight : 163.14 lbs 14:14:19 Lidocaine 2% 20ml vial added to field was administered by Aj Tai MD; for local anesthetic; 14:14:26 Heparin Flush Bag (1000units/500ml NS) 2 bags added to field was administered by Aj Tai MD; used for procedure; 14:14:27 Lab Result : Hemoglobin 13.1 g/dl 14:14:28 Zero performed for pressure channel P1 14:14:34 0.9% NaCl 100 ml/hr I.V. was administered by Jamal Jaime RN; Per physician; 14:15:26 Versed 2 mg I.V. was administered by Jamal Jaime RN; for sedation; 14:15:30 Fentanyl 100 mcg I.V. was administered by Jamal Jaime RN; for sedation; 14:15:49 Lab Result : Creatinine 0.9 mg/dl 14:15:49 Lab Result : BUN 11 mg/dl 14:19:37 Procedure started. 14:19:39 Local anesthetic to right femoral artery with Lidocaine 2% by Aj Tai MD.INITIAL ACCESS ONLY 14:20:03 A 5 Fr sheath was inserted into the Right Femoral artery 14:21:08 A MULTIPACK JL 4.0 5Fr catheter was advanced over the wire and used for Procedure. 14:21:11 LCA angiography performed. 14:21:23 Catheter removed. 14:21:29 A MULTIPACK 3DRC 5Fr catheter was advanced over the wire and used for Procedure. 14:21:30 Versed 1 mg I.V. was administered by Jamal Jaime RN; for sedation; 14:21:34 Fentanyl 50 mcg I.V. was administered by Jamal Jaime RN; for sedation; 14:22:05 RCA angiography performed. 14:22:57 Right subclavian angiography performed 14:23:36 Left carotid angiography performed. 14:24:11 Catheter removed. 14:24:16 A MULTIPACK Pigtail 5 Fr catheter was advanced over the wire and used for Procedure. 14:25:05 LV angiography performed. 14:25:15 LV gram done using HILLS 14::24 EF : 55 % 14:: LV hemodynamics recorded. 14:: Injector settings: Ml/sec: 10, Volume: 20, 14::39 Catheter removed. 14:: Use device set [place] PCI 14::43 Versed 1 mg I.V. was administered by Jamal Jaime RN; for sedation; 14::44 SHEATH 6FR Emery (OSK948) opened to sterile field. 14::46 Fentanyl 50 mcg I.V. was administered by Jamal Jaime RN; for sedation; 14:25:49 WHISPER 300cm guide wire ([id number]) opened to sterile field. 14:25:51 INFLATOR Merit BasixCompak (DX1723) opened to sterile field. 14::44 Sheath upsized to a 6 Fr Short. 14:27:02 GUIDE 6FR HS I SH catheter ([id number]) opened to sterile field. 14:27:15 6 Fr HS 1 SH guide catheter was inserted over the wire 14:27:36 Heparin Bolus 4000 units I.V. was administered by Jamal Jaime RN; for anticoagulation; verified with dr simmons 14:28:23 Whisper wire advanced. 14:28:52 Wire advanced across lesion. 14:29:10 Integrilin (Bolus 2mg/ml) 6.8 ml I.V. was administered by Jamal Jaime RN; for antiplatelet therapy; Wasted 3.2 ml of vial 14::44 Place stent Inflation Number: 1 A INTEGRITY OTW 3.0 X 15 stent ([id number]) was prepped and advanced across the Prox RCA. The stent was deployed at 14 MARTIN for 0:10 (min:sec). 14:31:27 Inflation number: 2 The stent balloon was then re-inflated across the Prox RCA to 6 MARTIN for 0:10 (min:sec). 14:32:08 Stent catheter was removed intact over wire. 14:32:10 Wire removed. 14:32:11 Guide catheter removed. 14:32:13 EXOSEAL 6Fr (EX600) opened to sterile field. 14:32:24 Sheath removed intact; hemostasis achieved with Exoseal to the Right Femoral artery. 14:32:33 Procedure ended.(Physican Out) 14:32:53 Fluoroscopy time 03.40 minutes. 14:33:00 Fluoroscopy dose: 545 mGy 14:33:00 Flurop Dose total: 545 14:33:05 Contrast amount:Isovue 300 107ml. 14:33:08 Insertion/operative site no bleeding no hematoma. 14:33:10 Post-op/insertion site Right Femoral artery dressed using a 4 x 4 and Tegaderm. 14:33:12 Post Procedure Pulses reassessed and unchanged 14:33:14 Post-procedure physical assessment completed. ASA score P 2 - A patient with mild systemic disease as per Aj Tai MD. 14:33:17 Post procedure rhythm: unchanged. 14:33:19 Estimated blood loss: 10 ml 14:33:20 Post procedure instruction explained to patient.Patient verbalizes understanding. 14:33:21 Patient needs reinforcement of post procedure teaching. 14:33:38 Procedure type changed to Cath procedure, Diagnostic procedure, LHC, LHC w/Coronaries, PCI procedure, Coronary Stent, Coronary Stent Initial, Peripheral Cath Diagnostic Procedure, Membership Sales Manager Peripheral Procedures, Four Vessel Arteriogram 14:33:40 Procedure and supply charges have been captured, reviewed, submitted and are correct. 14:33:42 Procedure Complication : No complications 14:35:00 Vital chart was stopped 14:35:01 See physician's report for complete and final results. 14:35:03 Plavix 600 mg P.O. was administered by Jamal Jaime RN; for antiplatelet therapy; 14:35:03 Report given to Pre/Post Procedure Room. 14:35:10 Patient transfered to Pre/Post Procedure Room with Stretcher. 14:35:13 Procedure ended. 14:35:13 Full Disclosure recording stopped 14:39:20 End room use (Document Last) Intervention Summary Intervention Notes Time ActionType Lesion and Equipment Action# Pressure Duration Attributes Used 14:30:44 Place stent Prox RCA INTEGRITY 1 14 00:10 OTW 3.0 X 15 stent ([id number]) 14:31:27 Reinflate Prox RCA INTEGRITY 2 6 00:10 stent OTW 3.0 X balloon 15 stent ([id number]) Device Usage Item Name Manufacture Quantity Catalog Hospital Part Current Minimal L ot# / Number Charge Number Stock Stock Serial# Code Tegaderm 4 3M 1 1626W [id number] [id number] 104079 5 x 4 (1626W) ACIST Acist 1 37434 148221 079844 268098 5 Manifold Medical (34193) Systems Inc ACIST Hand Acist 1 37879 022888 337943 170288 5 Control Medical (24740) Systems Inc ACIST Acist 1 10234 232820 109176 391226 20 Syringe Medical (35493) Systems Inc Bag Microtek 1 2001S 309877 35437 722803 5 Decanter Medical Inc. () Medline Medline 1 [id number] 751999 63837 794479 5 Cath Pack ([id number]) DIAGNOSTIC St Servando 1 124343 731569 463959 942557 30 WIRE .035 260cm J wire (361856) DIAGNOSTIC Cardinal 1 ZT8089 552004 93615 232596 30 Multipack Health 5Fr catheter set (CJ1188) SHEATH 5FR Terumo 1 KWZ043 983772 912718 177848 5 Emery (QLI844) MULTIPACK Cardinal 1 528177 5 JL 4.0 5Fr Health catheter MULTIPACK Cardinal 1 984578 5 3DRC 5Fr Health catheter MULTIPACK Cardinal 1 791105 5 Pigtail 5 Health Fr catheter SHEATH 6FR Terumo 1 MHI768 002901 653123 390897 40 Emery (AFS225) WHISPER Grubbs 1 [id number] 253945 266994 489565 5 300cm guide Vascular wire ([id number]) INFLATOR [facility] 1 ME2488 742596 183212 701724 15 [facility] BasixCompak (UR2807) GUIDE 6FR Medtronic 1 [id number] 063915 45911 366531 1 HS I SH catheter ([id number]) INTEGRITY Medtronic 1 [id number] 430646 110790 600784 1 0 [id number] OTW 3.0 X 15 stent ([id number]) EXOSEAL 6Fr Cardinal 1 EX600 619386 005703 349660 10 (EX600) Health Signature Audit Lamont Stage Time Signature Unsigned Intra-Procedure 10/18/2018 Hussain Trujillo 2:39:44 PM RT(R) Signatures Monitor : Hussain Trujillo RT Signature : Date : Time : [id number] [place] [address]
--- NOTE | ~2018-10-18 | OP ---
PATIENT NAME: GERRY BERNAL MEDICAL RECORD: [id number] :65 LOCATION:. ADMISSION DATE: SURGEON: LIBBY GALLEGOS MD DATE OF OPERATION: 10/18/2018 PROCEDURES: Cath plus 4-vessel arteriography, right femoral artery approach, plus stent to the right. CATHETERS: A 5-Jordanian sheath, 5/4 left and right Parker, 5/4 pig. The procedure was well tolerated. The patient was returned to gaytan. Sheath was removed. ExoSeal device was placed. FINDINGS: Left ventriculography in 30-degree HILLS view; normal wall motion and normal systolic function. CORONARY ANATOMY: LEFT MAIN: Left main is free of disease. LAD: Free of disease in the diagonal system. CIRCUMFLEX: Free of disease in the marginal system. RIGHT CORONARY ARTERY: Codominant system. Right coronary artery shows a 90% plus stenosis in its proximal third, obviously culprit artery. The right catheters were withdrawn. Proximally first, the right common carotid was selectively engaged and this showed some wall disease, but no stenosis greater than 20%. Right internal carotid; early atherosclerotic plaquing with no stenosis of greater than 20%. Right external carotid was normal. The left common carotid was then selectively engaged. It showed no significant obstructive disease. Left internal carotid was smooth-walled vessel, free of disease. Left external carotid; wall disease with no significant stenosis. Next, we proceeded to PTCA of the right coronary. A 5-Jordanian sheath was exchanged for a 6-Jordanian sheath. Hockey stick with side holes provided excellent guide catheter support. A 300-cm Whisper wire was placed across the occluded right down this portion of the vessel. Stent deployed was 3.0 x 15 mm Integrity up to 14 atmospheres for 45 seconds. Final angiography shows excellent resolution of 90% plus stenosis with no significant residual. DENNISE flow was 3 throughout the procedure. Integrilin was used during the case. Sheath was closed with ExoSeal device. TRANSINT:[id number] Voice Confirmation ID: [id number] DOCUMENT ID: [id number] LIBBY GALLEGOS MD CC: [id number] DICTATION DATE: 10/18/18 1445 STUDENT FINANCE ADVISOR: 10/18/18 191 [facility] [address] [place] [address]
--- NOTE | ~2018-10-18 | HP ---
PATIENT: GERRY BERNAL MEDICAL RECORD: [id number] ACCOUNT: [id number] LOCATION:[facility] : 65 ADMISSION DATE: 10/18/18 PCP: LEON SEGAL MD HISTORY AND PHYSICAL EXAMINATION HISTORY: A 53-year-old lady with known history of coronary artery disease. She has a history of chronic pain syndrome. She presented to the ER initially with chest pressure and tightness, fatigue, shortness of breath, and lightheadedness. Found to be bradycardic as well as hypotensive. She has history of anxiety. Troponin initially was elevated. ECG shows minor nonspecific ST-T changes. We are asked to see her concerning her cardiovascular status. PAST MEDICAL HISTORY: Includes; 1. History of osteoarthritis. 2. Anxiety disorder. 3. Status post total knee arthroplasty. 4. Bipolar disorder. ALLERGIES: INCLUDE HYDROXYZINE, KEFLEX, FEMOLENE, AND BACTRIM. SOCIAL HISTORY: Smokes about a pack a day. Social drinker. Social marijuana user. MEDICATIONS: Include Fosamax 70 mg p.o. every week, Pepcid 20 mg p.o. daily, Motrin 800 daily, Depakote 500 b.i.d., Seroquel 200 at bedtime, Requip 2 mg at bedtime, Cipro 500, Neurontin 300 b.i.d., and Celexa 40 daily. REVIEW OF SYSTEMS: The patient reports easy bruising but reports no swollen glands. The patient reports no fever, no night sweats, no significant weight gain, no significant weight loss. No significant exercise tolerance. The patient reports no dry eyes, no irritation, no vision change. Patient reports no difficulty hearing and no ear pain. Patient reports no frequent nose bleeds or nose and sinus problems. Patient reports on arm pain on exertion. No shortness of breath while lying down. No history of heart murmur. Patient reports no cough, no wheezing or coughing up blood. Patient reports no abdominal pain, no vomiting. Normal appetite. No diarrhea and not vomiting blood. No nausea and no constipation. Patient reports no incontinence. No difficulty urinating. No hematuria. No increased frequency. Patient reports no muscle aches. No weakness, no arthralgias, no back pain. No swelling of the extremities. Patient reports no abnormal mole, no jaundice, no rashes. Reports no loss of consciousness. No weakness and no numbness. No seizures, dizziness, or headaches. The patient reports no depression, no sleep disturbance, feeling safe in a relationship and no alcohol abuse. Patient reports on fatigue. Reports no runny nose or sinus pressure. No itching, no hives, and no frequent sneezing. PHYSICAL EXAMINATION: GENERAL: This is a middle-aged female, appears older than her stated age. VITAL SIGNS: Blood pressure 82/52. Pulse 59 and regular. HEENT: Normocephalic and atraumatic. NECK: No bruits noted. HEART: Regular. LUNGS: Lung ferrera have good air excursion. ABDOMEN: Soft and nontender. EXTREMITIES: Pulses 2+. There is no edema. HISTORY AND PHYSICAL [id number] GERRY BERNAL IMPRESSION: Syncope. She reports 4 episodes with some visual changes over the past 2 weeks. This is accompanied by chest tightness and pressure. No true amaurosis. Troponin is elevated. We will plan for angiography and 4-vessel arteriography in the same setting. TRANSINT:[id number] Voice Confirmation ID: [id number] DOCUMENT ID: [id number] LIBBY GALLEGOS MD CC: [id number] DICTATION DATE: 10/18/18 1415 FISH HATCHERY ASSISTANT: 10/18/18 1443 [facility] [address] [place] [id number]
[~2018-10-18 10:59] MED LIST changes: +CIPRO500 MG PO
[2018-10-18 11:04] VITALS: Ht 168.9 cm; Wt 73.6 kg
[2018-10-18] MEDS ORDERED: PEPCID AC20 MG PO (11:11)
[2018-10-18 11:29] LABS: BASOPHILS 0.4 % (0-2); EOSINOPHILS 3.3 % (0-7); HEMATOCRIT 38.6 % (36.0-48.0); HEMOGLOBIN 13.1 g/dL (12-16); IMMATURE GRANULOCYTES 0.6 % (0-5); LYMPHOCYTES 27.8 % (15-50); MCH 32.9 pg (26.0-34.0); MCHC 33.9 g/dL (31.0-37.0); MEAN PLATELET VOLUME 10.2 fL (7.4-10.4); MONOCYTES 10.7 % (2-11); NEUTROPHILS 57.2 % (40-80); PLATELET COUNT 247 10x3/uL (130-400); RBC 3.98 10x6/uL (4.00-5.40); RDW 17.2 % (11.5-14.5); WBC 7.9 10x3/uL (4.8-10.8)
[2018-10-18 11:51] LABS: ANION GAP 8.7 mmol/L (8-16); BILIRUBIN - TOTAL 0.18 mg/dL (0.2-1.3); CALCIUM 8.2 mg/dL (8.5-10.1); CARBON DIOXIDE 28.6 mmol/L (21.0-32.0); CREATININE - SERUM 0.9 mg/dL (0.6-1.3); POTASSIUM - SERUM 4.3 mmol/L (3.5-5.1); PROTEIN - SERUM 6.7 g/dL (6.4-8.2)
[2018-10-18 12:02] LABS: TROPONIN-I 0.103 ng/mL (0.000-0.060)
[2018-10-18 12:08] LABS: APPEARANCE CLOUDY (CLEAR); BILIRUBIN NEGATIVE (NEGATIVE); COLOR YELLOW (YELLOW); GLUCOSE NEGATIVE (NEGATIVE); KETONE NEGATIVE (NEGATIVE); NITRITE NEGATIVE (NEGATIVE); PROTEIN 2+ mg/dL (NEGATIVE); UROBILINOGEN NORMAL (NORMAL)
[2018-10-18 12:09] LABS: BACTERIA MODERATE /hpf (NONE SEEN); MUCUS <1+ /lpf (NONE SEEN); RED CELLS - URINE >50 /hpf (0-5); YEAST >1+ /hpf (NONE SEEN)
[2018-10-18 12:24] LABS: UDS - AMPHET NEGATIVE QUAL (NEGATIVE); UDS - BARB NEGATIVE QUAL (NEGATIVE); UDS - BENZO POSITIVE QUAL (NEGATIVE); UDS - COCAINE NEGATIVE QUAL (NEGATIVE); UDS - OPIATE POSITIVE QUAL (NEGATIVE); UDS - PCP NEGATIVE QUAL (NEGATIVE); UDS - THC POSITIVE QUAL (NEGATIVE)
[2018-10-18 13:53] VITALS: BP 114/58
--- NOTE | 2018-10-18 15:23 | NUR ---
1450 RECEIVED PT FROM THORACIC MEDICINE PHYSICIAN. PT IS ALERT, VSS. STATES HAVING REFLUX DISCOMFORT SINCE TAKING PLAVIX TABLETS. BED TILTED TO REVERSE [place], PO FLUIDS SERVED. PT INSTRUCTED TO KEEP HEAD FLAT TO PILLOW AND RIGHT LEG STRAIGHT AND VERBALIZES UNDERSTANDING. DRESSING IS CDI TO RIGHT GROIN, AREA IS SOFT AND NONTENDER. PEDAL PULSES PALPABLE. CALL LIGHT IN REACH. NO FAMILY AT BEDSIDE. 1505 PT STATES REFLUX DISCOMFORT IS RELIEVED WITH BED TILT AND PO FLUIDS. APPLESAUCE AND SOUP SERVED. DRESSING CDI, PEDAL PULSES PALPABLE. VSS. DENIES ANY C/O.
[2018-10-18] MEDS ORDERED: MACROBID100 MG PO (16:01)
[2018-10-18] MEDS ORDERED: PLAVIX75 MG PO (16:01)
--- NOTE | 2018-10-18 16:05 | NUR ---
PT HAS VOIDED APPROX 600 CC OF BLOOD TINGED URINE TO BEDPAN. PT STAES URINE HAS BEEN "VERY BLOODY BUT GETTING LITHOGRAPH PRESS FEEDER' SINCE RECENT CYSTOSCOPY AND URETERAL STENT PLACEMENT. DRESSING REMAINS CDI TO RIGHT GROIN,. PEDAL PULSES PALPABLE. PT DENIES ANY C/O. VSS.
--- NOTE | 2018-10-18 16:24 | NUR ---
PT ALERT, TALKINGON THE PHONE WITH FAMILY. DRESSING CDI RIGHT GROIN, PEDAL PULSES 2+. HOB IS FLAT, VSS.
--- NOTE | 2018-10-18 17:21 | NUR ---
1655 PT ALERT, WATCHING TV. DRESSING CDI,. PULSES PALPABLE. SINUS ANSELMO AT 49, DENIES ANY C/O CHEST PAIN. HOB IS FLAT, VSS. 1720 DRESSING CDI, PULSES PALPABLE. SINUS ANSELMO AT 48, BP IS 112/61, PT DENIES NEEDS AT THIS TIME.
--- NOTE | 2018-10-18 18:04 | NUR ---
DRESSING CDI, PULSES PALPABLE. HOB ELEVATED 30 DEGREES AND SANDWICH SERVED. PT IS ALERT AND DENIES ANY C/O AT THIS TIME.
--- NOTE | 2018-10-18 18:18 | NUR ---
DRESSING REMAINS CDI, HOB FULLE ELEVATED. PT ALFRED SANDWICH WITH NO C/O NAUSEA.
--- NOTE | 2018-10-18 18:37 | NUR ---
DC INSTRUCTIONS REVIEWED WITH PT WHO VERBALIZES UNDERSTANDING. PT VERBALIZES UNDERSTANDING TO START DAILY PLAVIX TOMORROW AND STATES SON WILL PICK THIS UP FOR HER FROM PHARMACY. STATED I WOULD REVIEW THIS WITH SON ALSO WHEN HE COMES TO PICK HER UP AND PT STATES SHE DOES NOT WANT DC INSTRUCTIONS REVIEWED WITH SON, STATING 'HE DOESNT LIVE WITH ME AND I WOULD PREFER YOU NOT.' WRITTEN COPIES OF DC INSTRUCTIONS TO PT WELL PLAVIX AND MACROBID PRESCRIPTIONS AND PLAVIX MED COUNSELOR SHEETS. DRESSING REMAINS CDI, PEDAL PULSES PALPABLE.
--- NOTE | 2018-10-18 18:48 | NUR ---
ASSISTED PT UP TO THE BATHROOM, PT VOIDED QS, DENIES ANY C/O. DRESSING REMAINS CDI, PEDAL PULSES PALPABLE.
--- NOTE | 2018-10-18 19:04 | NUR ---
PT SITTING UP IN BED, WATCHING TV AND EATING ICE CREAM. AWAITING HER RIDE. DENIES NEEDS AT THIS TIME.
--- NOTE | 2018-10-18 19:40 | NUR ---
193 PT ALERT AND DENIES ANY C/O. IV DC'D WITH CATH INTACT AND PT DRESSING FOR DC. DRESSING TO RIGHT GROIN REMAINS CDI.
--- NOTE | 2018-10-18 19:41 | NUR ---
PT ESCORTED TO PRIVATE AUTO VIA WC BY NURSE WITH SON DRIVING HER HOME. PT IS ALERT AND DENIES ANY C/O. PT HAS DC INSTRUCTIONS AND ALL PERSONAL BELONGINGS AT TIME OF DC TO HOME.
== END 2018-10-18 19:40 | disposition home or self-care (01) ==
LOC: D.ER 10:59 → D.CATH 10:59 → EDSTATUS 19:44
PROVIDERS: Emergency Medicine; ATTEND Internal Medicine Interventional Cardiology
DX: I25.119 Atherosclerotic heart disease of native coronary artery with unspecified angina pectoris (principal); G89.4 Chronic pain syndrome; M19.90 Unspecified osteoarthritis, unspecified site; F41.9 Anxiety disorder, unspecified; Z96.659 Presence of unspecified artificial knee joint; F31.9 Bipolar disorder, unspecified; F17.210 Nicotine dependence, cigarettes, uncomplicated; Z88.1 Allergy status to other antibiotic agents; Z88.2 Allergy status to sulfonamides; Z88.8 Allergy status to other drugs, medicaments and biological substances; Z79.1 Long term (current) use of non-steroidal anti-inflammatories (NSAID); Z79.2 Long term (current) use of antibiotics; Z79.899 Other long term (current) drug therapy; Z01.812 Encounter for preprocedural laboratory examination

== ENCOUNTER → 2018-10-24 14:35 | Outpatient (CLI) | payer MEDICAID ==
[2018-10-18 11:04] VITALS: BMI 25.8
[~2018-10-24 14:35] MED LIST changes: +MACROBID100 MG PO; +PLAVIX75 MG PO
== END | disposition home or self-care (01) ==
LOC: D.LAB 14:35
PROVIDERS: ATTEND Urology
DX: N20.0 Calculus of kidney (principal)

== ENCOUNTER → 2018-11-09 11:01 | Outpatient (CLI) | payer MEDICAID ==
[2018-10-18 11:04] VITALS: BMI 25.8
[~2018-11-09 11:01] MED LIST changes: +DICLOFENAC SODI50 MG PO
== END | disposition home or self-care (01) ==
LOC: D.NM 11:01
PROVIDERS: ATTEND Urology
DX: N13.30 Unspecified hydronephrosis (principal)

== ENCOUNTER 2018-11-13 11:40 | Emergency (ER) | payer MEDICAID ==
[~2018-11-13] VITALS: Ht 168.9 cm; Wt 73.6 kg
[~2018-11-13 11:40] MED LIST changes: -DICLOFENAC SODI50 MG PO
[2018-11-13 11:55] VITALS: Ht 168.9 cm; Wt 73.6 kg
[2018-11-13] MEDS ORDERED: DICLOFENAC SODI50 MG PO (13:11)
[2018-11-13 13:44] VITALS: BP 129/80
== END 2018-11-13 13:45 | disposition home or self-care (01) ==
LOC: D.ER 11:40
DX: M25.462 Effusion, left knee (principal)

== ENCOUNTER → 2018-12-07 09:57 | Outpatient (CLI) | payer MEDICAID ==
[2018-11-13 11:55] VITALS: BMI 25.8
[~2018-12-07 09:57] MED LIST changes: +DICLOFENAC SODI50 MG PO
== END | disposition home or self-care (01) ==
LOC: D.CT 12-06 15:30
PROVIDERS: ATTEND Family Medicine
DX: R42 Dizziness and giddiness (principal)

== ENCOUNTER 2019-01-28 22:07 | Emergency (ER) | payer MEDICAID ==
[~2019-01-28] VITALS: Ht 168.9 cm; Wt 75.0 kg
[2019-01-28 22:12] VITALS: Ht 168.9 cm; Wt 75.0 kg
[2019-01-28 22:53] LABS: BASOPHILS 0.4 % (0-2); EOSINOPHILS 2.8 % (0-7); HEMATOCRIT 40.8 % (36.0-48.0); HEMOGLOBIN 14.2 g/dL (12-16); IMMATURE GRANULOCYTES 0.7 % (0-5); LYMPHOCYTES 42.2 % (15-50); MCH 35.2 pg (26.0-34.0); MCHC 34.8 g/dL (31.0-37.0); MCV 101.2 fL (80.0-100.0); MEAN PLATELET VOLUME 9.8 fL (7.4-10.4); MONOCYTES 6.9 % (2-11); PLATELET COUNT 254 10x3/uL (130-400); RBC 4.03 10x6/uL (4.00-5.40); RDW 14.7 % (11.5-14.5); WBC 7.1 10x3/uL (4.8-10.8)
[2019-01-28 23:10] LABS: APTT 26.3 SECONDS (22.8-39.4); INR 0.89 (0.85-1.17); PROTIME 11.5 SECONDS (11.6-15.0)
[2019-01-28 23:18] LABS: ALBUMIN 3.4 g/dL (3.4-5.0); ALKALINE PHOSPHATASE 101 U/L (46-116); ALT (SGPT) 46 U/L (10-68); CALC OSMOLALITY 272 mosm/kg (275-300); CALCIUM 8.9 mg/dL (8.5-10.1); CARBON DIOXIDE 26.2 mmol/L (21.0-32.0); CHLORIDE - SERUM 101 mmol/L (98-107); CREATININE - SERUM 0.9 mg/dL (0.6-1.3); GLUCOSE 79 mg/dL (74-106); POTASSIUM - SERUM 3.8 mmol/L (3.5-5.1); SODIUM 138 mmol/L (136-145); UREA NITROGEN 6 mg/dL (7-18); eGFR NON AFRICAN AMERICAN 69 mL/min (90-120)
[2019-01-28 23:30] LABS: CKMB 0.9 U/L (0.0-3.6); CREATINE KINASE 35 UL (21-215); MAGNESIUM - SERUM 2.1 mg/dL (1.8-2.4)
--- NOTE | 2019-01-28 23:31 | NUR ---
DR REARDON NOTIFIED AND REVIEWED PT's BEHAVIOR AND ASSESSMENT RESULTS, PT IS A LOW RISK PER DR REARDON. DR REARDON STATED TO GIVE RESOURCES TO PT AT TIME OF DISCHARGE. NO FURTHER ORDERS AT THIS TIME. RESOURCES REVIEWED WITH PT AND SHE VERBALIZED UNDERSTANDING.
[2019-01-28 23:35] LABS: TROPONIN-I < 0.017 ng/mL (0.000-0.060)
[2019-01-29 01:09] VITALS: BP 104/51
== END 2019-01-29 01:10 | disposition home or self-care (01) ==
LOC: D.ER 22:07
PROVIDERS: Family Medicine
DX: I95.1 Orthostatic hypotension (principal); T50.905A Adverse effect of unspecified drugs, medicaments and biological substances, initial encounter; Y92.89 Other specified places as the place of occurrence of the external cause

== ENCOUNTER 2020-11-24 15:11 | Inpatient (IN) | payer MEDICARE ==
[~2020-11-24] VITALS: Ht 167.6 cm; Wt 78.5 kg
[2020-11-24] VITALS (7 sets, daily range): BP systolic 91–115; BP diastolic 51–69; BMI 27.9
[2020-11-24 16:13] LABS: APTT 32.1 SECONDS (22.8-39.4); INR 1.25 (0.85-1.17); PROTIME 14.5 SECONDS (11.6-15.0)
[2020-11-24 16:20] LABS: BASOPHILS 0.4 % (0-2); EOSINOPHILS 0.1 % (0-7); HEMATOCRIT 30.3 % (36.0-48.0); HEMOGLOBIN 10.6 g/dL (12-16); IMMATURE GRANULOCYTES 1.3 % (0-5); LYMPHOCYTE ABS# 1.06 10x3/uL (1.18-3.74); LYMPHOCYTES 7.6 % (15-50); MCH 34.8 pg (26.0-34.0); MCV 99.3 fL (80.0-100.0); MEAN PLATELET VOLUME 12.4 fL (7.4-10.4); MONOCYTES 2.1 % (2-11); NEUTROPHIL ABS# 12.38 10x3/uL (1.56-6.13); NEUTROPHILS 88.5 % (40-80); RBC 3.05 10x6/uL (4.00-5.40)
[2020-11-24 16:31] LABS: ALBUMIN 2.2 g/dL (3.4-5.0); BILIRUBIN - TOTAL 5.16 mg/dL (0.2-1.3); CALCIUM 8.9 mg/dL (8.5-10.1); CARBON DIOXIDE 23.1 mmol/L (21.0-32.0); CREATININE - SERUM 0.9 mg/dL (0.6-1.3); MAGNESIUM - SERUM 1.9 mg/dL (1.8-2.4); POTASSIUM - SERUM 3.8 mmol/L (3.5-5.1); PROTEIN - SERUM 7.3 g/dL (6.4-8.2); THYROID STIMULATING HORMONE 3.99 uIU/mL (0.36-3.74)
[2020-11-24 16:33] LABS: ANION GAP 14.7 mmol/L (8-16); PLATELET COUNT 80 10x3/uL (130-400)
[2020-11-24 16:34] LABS: PLATELET ESTIMATE DECREASED
--- NOTE | 2020-11-24 16:39 | NUR ---
RT NOTIFIED OF ABG WITH ELECTROLYTES ORDER.
[2020-11-24 17:23] LABS: UDS - AMPHET NEGATIVE QUAL (NEGATIVE); UDS - BARB NEGATIVE QUAL (NEGATIVE); UDS - BENZO NEGATIVE QUAL (NEGATIVE); UDS - COCAINE NEGATIVE QUAL (NEGATIVE); UDS - OPIATE NEGATIVE QUAL (NEGATIVE); UDS - PCP NEGATIVE QUAL (NEGATIVE); UDS - THC NEGATIVE QUAL (NEGATIVE)
[2020-11-24 17:38] LABS: NITRITE NEGATIVE (NEGATIVE)
[2020-11-24 17:39] LABS: BILIRUBIN 2+ (NEGATIVE); KETONE MODERATE mg/dL (NEGATIVE)
[2020-11-24 17:41] LABS: BACTERIA MANY HPF (NONE SEEN); WHITE CELLS - URINE >50 HPF (0-4)
--- NOTE | 2020-11-24 21:00 | NUR ---
RECEIVED PT FROM THE ER TO ROOM 2301. PT AWAKE AND ALERT BUT CONFUSED TO TIME. PT WAS ABLE TO ANSWER ALL QUESTIONS APPROPRIATELY. PT ATTACHED TO ICU MONITORS. PT REQUESTED WATER AND WATER WAS PROVIDED. ADMISSION ASSESSMENT AND HX COMPLETED SEE FLOWSHEET FOR DETAILS. NO S/S OF DISTRESS. WILL CONTINUE TO MONITOR.
[2020-11-24 23:27] LABS: CALC OSMOLALITY 244 mosm/kg (275-300); CALCIUM 7.9 mg/dL (8.5-10.1); CARBON DIOXIDE 24.6 mmol/L (21.0-32.0); CHLORIDE - SERUM 89 mmol/L (98-107); CREATININE - SERUM 0.8 mg/dL (0.6-1.3); GLUCOSE 95 mg/dL (74-106); POTASSIUM - SERUM 3.6 mmol/L (3.5-5.1); SODIUM 122 mmol/L (136-145); UREA NITROGEN 11 mg/dL (7-18); eGFR NON AFRICAN AMERICAN 79 mL/min (90-120)
[2020-11-25] VITALS (24 sets, daily range): BP systolic 74–101; BP diastolic 44–74; Ht 167.6 cm; Wt 78.5 kg
[2020-11-25 05:06] LABS: BASOPHILS 0.6 % (0-2); EOSINOPHILS 0.9 % (0-7); HEMATOCRIT 24.9 % (36.0-48.0); HEMOGLOBIN 8.7 g/dL (12-16); IMMATURE GRANULOCYTES 1.1 % (0-5); LYMPHOCYTE ABS# 1.44 10x3/uL (1.18-3.74); LYMPHOCYTES 13.8 % (15-50); MCH 34.7 pg (26.0-34.0); MCHC 34.9 g/dL (31.0-37.0); MCV 99.2 fL (80.0-100.0); MONOCYTES 3.4 % (2-11); NEUTROPHIL ABS# 8.38 10x3/uL (1.56-6.13); NEUTROPHILS 80.2 % (40-80); PLATELET COUNT 76 10x3/uL (130-400); RBC 2.51 10x6/uL (4.00-5.40); RDW 16.1 % (11.5-14.5); RETIC 1.85 % (0.45-2.28)
[2020-11-25 05:25] LABS: WBC 10.4 10x3/uL (4.8-10.8)
[2020-11-25 05:29] LABS: INR 1.26 (0.85-1.17); PROTIME 14.7 SECONDS (11.6-15.0)
[2020-11-25 05:30] LABS: APTT 35.5 SECONDS (22.8-39.4)
[2020-11-25 05:42] LABS: % SATURATION 130 % (15-55); IRON 72 ug/dl (35-150); TOTAL IRON BIND CAPACITY 55 ug/dl (260-445)
[2020-11-25 06:06] LABS: ALBUMIN 1.7 g/dL (3.4-5.0); ALKALINE PHOSPHATASE 272 U/L (30-120); ALT (SGPT) 57 U/L (10-68); AMYLASE - SERUM 54 U/L (25-115); BILIRUBIN - TOTAL 3.49 mg/dL (0.2-1.3); CALC OSMOLALITY 247 mosm/kg (275-300); CHLORIDE - SERUM 90 mmol/L (98-107); CHOL - HDL RATIO 9.5 ratio (2.3-4.1); CHOLESTEROL, TOTAL 114 mg/dL (0-200); CREATININE - SERUM 0.7 mg/dL (0.6-1.3); FERRITIN 922 ng/mL (3-244); GLUCOSE 78 mg/dL (74-106); HDL CHOLESTEROL 12 mg/dL (32-96); LDH 146 U/L (81-234); LDL CHOLESTEROL 82 mg/dL (0-100); LDL-HDL RATIO 6.8 ratio (1.5-3.5); PHOSPHOROUS 1.8 mg/dL (2.5-4.9); POTASSIUM - SERUM 3.5 mmol/L (3.5-5.1); PROTEIN - SERUM 5.8 g/dL (6.4-8.2); SODIUM 124 mmol/L (136-145); THYROID STIMULATING HORMONE 3.56 uIU/mL (0.36-3.74); TRIGLYCERIDE 100 mg/dL (30-200); UREA NITROGEN 11 mg/dL (7-18); eGFR NON AFRICAN AMERICAN > 90 mL/min (90-120)
[2020-11-26] VITALS (15 sets, daily range): BP systolic 88–100; BP diastolic 50–64
[2020-11-26 04:35] LABS: BASOPHILS 0.4 % (0-2); EOSINOPHILS 0.7 % (0-7); HEMATOCRIT 24.4 % (36.0-48.0); HEMOGLOBIN 8.2 g/dL (12-16); IMMATURE GRANULOCYTES 1.7 % (0-5); LYMPHOCYTE ABS# 1.39 10x3/uL (1.18-3.74); LYMPHOCYTES 13.7 % (15-50); MCH 33.9 pg (26.0-34.0); MCHC 33.6 g/dL (31.0-37.0); MCV 100.8 fL (80.0-100.0); MEAN PLATELET VOLUME 11.9 fL (7.4-10.4); MONOCYTES 3.8 % (2-11); NEUTROPHILS 79.7 % (40-80); PLATELET COUNT 83 10x3/uL (130-400); RBC 2.42 10x6/uL (4.00-5.40); RDW 16.1 % (11.5-14.5); WBC 10.2 10x3/uL (4.8-10.8)
[2020-11-26 04:41] LABS: PLATELET ESTIMATE DECREASED
[2020-11-26 05:09] LABS: ALBUMIN 1.7 g/dL (3.4-5.0); ALKALINE PHOSPHATASE 267 U/L (30-120); ALT (SGPT) 53 U/L (10-68); BILIRUBIN - TOTAL 3.13 mg/dL (0.2-1.3); CALC OSMOLALITY 250 mosm/kg (275-300); CALCIUM 7.5 mg/dL (8.5-10.1); CARBON DIOXIDE 20.9 mmol/L (21.0-32.0); CHLORIDE - SERUM 95 mmol/L (98-107); CREATININE - SERUM 0.8 mg/dL (0.6-1.3); GLUCOSE 87 mg/dL (74-106); MAGNESIUM - SERUM 1.8 mg/dL (1.8-2.4); PROTEIN - SERUM 5.7 g/dL (6.4-8.2); SODIUM 126 mmol/L (136-145); UREA NITROGEN 11 mg/dL (7-18); eGFR NON AFRICAN AMERICAN 79 mL/min (90-120)
[2020-11-26 05:40] LABS: POTASSIUM - SERUM 4.2 mmol/L (3.5-5.1)
[2020-11-26 05:41] LABS: PHOSPHOROUS 1.4 mg/dL (2.5-4.9)
--- NOTE | 2020-11-26 07:40 | NUR ---
laying in bed resting, oriented to person, place, and time, follows commands, no distress noted, no needs voiced, call light in reach, will monitor
[2020-11-26 10:11] LABS: HEPATITIS C ANTIBODY <0.1 S/CO RAT (0.0-0.9)
[2020-11-26 11:11] LABS: ERYTHROPOIETIN 32.8 mIU/mL (2.6-18.5)
--- NOTE | 2020-11-26 12:41 | NUR ---
SON AT BEDSIDE
--- NOTE | 2020-11-26 14:39 | NUR ---
report called to tyler hernadez on med surg
--- NOTE | 2020-11-26 15:00 | NUR ---
pt transferred to 2228 via wheelchair, belongings sent with pt, bedside report given
--- NOTE | 2020-11-26 15:08 | NUR ---
PATIENT TO UNIT VIA WHEELCHAIR. X2 ASSIST TO UP IN CHAIR. KAMALA MAT ALARM ON. CALL LIGHT IN REACH. YELLOW GOWN, NON SLIP SOCKS ON, SCD'S ON. FREE FROM SIGNS OF DISTRESS. WILL CONTINUE TO MONITOR.
--- NOTE | 2020-11-26 15:09 | NUR ---
TO ROOM 2229 FROM ICU VIA WHEELCHAIR. PATIENT IS WITHOT DISTRESS.REDNESS NOTED TO BILATERAL INNER BUTT WITH NO OPEN AREA. NO PRODUCTIVE COUGH.BRUISES NOTED ON BODY SPORATIC.IS INSTRUCTED,BUT PATIENT IS MAD RE.. NPO STATUS. SCD'S PLACED ON PATIENT.FALL PREVENTION WITH YELLOW GOWN.BAND.SOCKS,CHAIR ALARM AND KAMALA MAT. DOOR OPEN TO MONITOR.CALL LIGHT IN REACH
[2020-11-27] VITALS: BP 98/44
--- NOTE | 2020-11-27 03:17 | NUR ---
ASSESSED AT THE BEGINNING OF THE SHIFT. PT IS ALERT AND ABLE TO VERBALIZE NEEDS. SHE HAS ASKED FOR THE BEDPAN FREQUENTLY AND HAS BEEN HAVAEING DIARRHEA. HER ABD IS STILL A LITTLE DISTENDED AND HER URINE IS DARK ALMOST ORANGE COLORED. SHE IS ON ROOM AIR AND IS ABLE TO TURN AND REPOSITION HERSELF WITH MINIMAL ASSIST. IV SITE REMAINS IN THE LEFT A/C AND HAS NS AT 100.
[2020-11-27 04:00] VITALS: BP 96/59
[2020-11-27 06:47] LABS: BASOPHILS 0.5 % (0-2); EOSINOPHILS 0.6 % (0-7); HEMATOCRIT 25.1 % (36.0-48.0); HEMOGLOBIN 8.4 g/dL (12-16); IMMATURE GRANULOCYTES 2.4 % (0-5); LYMPHOCYTE ABS# 1.65 10x3/uL (1.18-3.74); MCH 33.9 pg (26.0-34.0); MCHC 33.5 g/dL (31.0-37.0); MCV 101.2 fL (80.0-100.0); MEAN PLATELET VOLUME 11.9 fL (7.4-10.4); MONOCYTES 4.2 % (2-11); NEUTROPHIL ABS# 8.48 10x3/uL (1.56-6.13); NEUTROPHILS 77.3 % (40-80); PLATELET COUNT 82 10x3/uL (130-400); RBC 2.48 10x6/uL (4.00-5.40); RDW 16.2 % (11.5-14.5)
[2020-11-27 07:26] LABS: ALBUMIN 1.7 g/dL (3.4-5.0); ALKALINE PHOSPHATASE 273 U/L (30-120); ALT (SGPT) 56 U/L (10-68); BILIRUBIN - TOTAL 2.65 mg/dL (0.2-1.3); CALC OSMOLALITY 250 mosm/kg (275-300); CALCIUM 7.5 mg/dL (8.5-10.1); CARBON DIOXIDE 20.4 mmol/L (21.0-32.0); CHLORIDE - SERUM 95 mmol/L (98-107); CREATININE - SERUM 0.7 mg/dL (0.6-1.3); GLUCOSE 101 mg/dL (74-106); MAGNESIUM - SERUM 2.1 mg/dL (1.8-2.4); POTASSIUM - SERUM 4.1 mmol/L (3.5-5.1); PROTEIN - SERUM 5.7 g/dL (6.4-8.2); SODIUM 126 mmol/L (136-145); eGFR NON AFRICAN AMERICAN > 90 mL/min (90-120)
[2020-11-27 07:29] LABS: UREA NITROGEN 8 mg/dL (7-18)
[2020-11-27 07:34] LABS: PHOSPHOROUS 1.5 mg/dL (2.5-4.9)
--- NOTE | 2020-11-27 09:10 | NUR ---
ASSESSMENT PER FLOW SHEET. PATIENT IS WITHOUT DISTRESS. MONITOR FOR NEEDS.CALL LIGHT IN REACH
[2020-11-27 09:41] VITALS: BP 96/63
[2020-11-27 11:01] LABS: INR 1.3 (0.85-1.17)
[2020-11-27 12:58] VITALS: BP 101/58
--- NOTE | 2020-11-27 13:18 | NUR ---
Nutrition follow-up: Pt just out of ICU Diet advanced to regular with po intake 100% of dinner last night; no free water and 100 cc fluid restriction in [address] Labs reviewed; Na, Cl still low Wt: 172# Now with loose stools due to Miralax Will provide food choices and honor food preferences. RDN will follow-up on progress toward nutrition goals: 12/01/20
[2020-11-27 17:29] VITALS: BP 101/65
--- NOTE | 2020-11-27 18:04 | NUR ---
PATIENT IS WITHOUT DISTRESS.ATE AND DRANK VERY LITTLE TODAY. INCONT OF URINE TODAY.WITHOUT CHANGE. CONT PLAN OF CARE
[2020-11-27 21:12] VITALS: BP 101/60
[2020-11-28 01:14] VITALS: BP 108/66
[2020-11-28 05:56] VITALS: BP 90/50
[2020-11-28 06:41] LABS: HEMATOCRIT 23.5 % (36.0-48.0); HEMOGLOBIN 8.1 g/dL (12-16); LYMPHOCYTE ABS# 1.66 10x3/uL (1.18-3.74); MCH 34.6 pg (26.0-34.0); MCHC 34.5 g/dL (31.0-37.0); MCV 100.4 fL (80.0-100.0); MEAN PLATELET VOLUME 11.9 fL (7.4-10.4); NEUTROPHIL ABS# 8.71 10x3/uL (1.56-6.13); PLATELET COUNT 77 10x3/uL (130-400); RBC 2.34 10x6/uL (4.00-5.40); RDW 16.4 % (11.5-14.5); WBC 11.3 10x3/uL (4.8-10.8)
[2020-11-28 06:44] LABS: ALBUMIN 1.7 g/dL (3.4-5.0); ALKALINE PHOSPHATASE 255 U/L (30-120); ALT (SGPT) 51 U/L (10-68); BILIRUBIN - TOTAL 2.17 mg/dL (0.2-1.3); CALC OSMOLALITY 252 mosm/kg (275-300); CALCIUM 7.5 mg/dL (8.5-10.1); CARBON DIOXIDE 19.7 mmol/L (21.0-32.0); CHLORIDE - SERUM 98 mmol/L (98-107); CREATININE - SERUM 0.7 mg/dL (0.6-1.3); GLUCOSE 95 mg/dL (74-106); MAGNESIUM - SERUM 1.9 mg/dL (1.8-2.4); PHOSPHOROUS 1.6 mg/dL (2.5-4.9); POTASSIUM - SERUM 3.9 mmol/L (3.5-5.1); PROTEIN - SERUM 5.6 g/dL (6.4-8.2); SODIUM 127 mmol/L (136-145); UREA NITROGEN 7 mg/dL (7-18); eGFR NON AFRICAN AMERICAN > 90 mL/min (90-120)
--- NOTE | 2020-11-28 07:30 | NUR ---
RESTING IN BED WITH EYES OPEN, ALERT AND ORIENTED, WITH TIMES OF CONFUSION. IV LOCATED TO LEFT AC @ 100ML/HR. ASSISTED ON TO BED ARMAS. NO CURRENT S/S OF DISTRESS AT THIS TIME, DENIES FURTHER NEEDS, WILL CONT TO MONITOR.
[2020-11-28 07:33] LABS: LYMPHOCYTES 15 % (15-50); NEUTROPHILS 84 % (40-80)
[2020-11-28 07:34] LABS: PLATELET ESTIMATE DECREASED; TARGET CELLS 1+
--- NOTE | 2020-11-28 08:00 | NUR ---
CALLED PHARMACY FOR PHOSPHORUS REPLACEMENT.
[2020-11-28 09:55] VITALS: BP 83/60
[2020-11-28 12:56] VITALS: BP 100/63
--- NOTE | 2020-11-28 16:00 | NUR ---
IN AND OUT COMPLETED, URINE TAKEN TO LAB.
[2020-11-28 18:16] VITALS: BP 102/64
[2020-11-28 20:52] VITALS: BP 78/53
[2020-11-29 05:25] VITALS: BP 80/68
[2020-11-29 06:40] LABS: BASOPHILS 0.3 % (0-2); EOSINOPHILS 0.9 % (0-7); IMMATURE GRANULOCYTES 2.1 % (0-5); LYMPHOCYTE ABS# 1.95 10x3/uL (1.18-3.74); LYMPHOCYTES 15.5 % (15-50); MCH 33.9 pg (26.0-34.0); MCHC 33.3 g/dL (31.0-37.0); MCV 101.7 fL (80.0-100.0); MEAN PLATELET VOLUME 11.7 fL (7.4-10.4); MONOCYTES 4.8 % (2-11); NEUTROPHIL ABS# 9.63 10x3/uL (1.56-6.13); NEUTROPHILS 76.4 % (40-80); PLATELET COUNT 76 10x3/uL (130-400); RBC 2.36 10x6/uL (4.00-5.40); RDW 16.3 % (11.5-14.5); WBC 12.6 10x3/uL (4.8-10.8)
[2020-11-29 07:11] LABS: ALBUMIN 1.6 g/dL (3.4-5.0); ALKALINE PHOSPHATASE 239 U/L (30-120); ALT (SGPT) 50 U/L (10-68); BILIRUBIN - TOTAL 1.76 mg/dL (0.2-1.3); CALC OSMOLALITY 255 mosm/kg (275-300); CALCIUM 7.1 mg/dL (8.5-10.1); CARBON DIOXIDE 19.6 mmol/L (21.0-32.0); CHLORIDE - SERUM 99 mmol/L (98-107); CREATININE - SERUM 0.7 mg/dL (0.6-1.3); GLUCOSE 86 mg/dL (74-106); MAGNESIUM - SERUM 1.7 mg/dL (1.8-2.4); PHOSPHOROUS 1.9 mg/dL (2.5-4.9); POTASSIUM - SERUM 3.9 mmol/L (3.5-5.1); PROTEIN - SERUM 5.5 g/dL (6.4-8.2); SODIUM 129 mmol/L (136-145); UREA NITROGEN 8 mg/dL (7-18); eGFR NON AFRICAN AMERICAN > 90 mL/min (90-120)
[2020-11-29 11:28] VITALS: BP 110/67
--- NOTE | 2020-11-29 14:14 | NUR ---
ASSISTED STITCH BONDING MACHINE OPERATOR WITH FULL LINEN CHANGE FOR PATIENT. ABLE TO OBTAIN STOOL SAMPLE. COTNINUE WITH PLAN OF CARE
[2020-11-29 15:25] LABS: INR 1.28 (0.85-1.17); PROTIME 14.8 SECONDS (11.6-15.0)
[2020-11-29 16:00] VITALS: BP 96/52
--- NOTE | 2020-11-29 17:18 | NUR ---
I have reviewed this patient and I concur with the Shift Assessment completed by the Licensed Practical Nurse today this shift.
[2020-11-29 18:48] VITALS: BP 110/64
--- NOTE | 2020-11-29 19:30 | NUR ---
RECEIVED REPORT, ASSUMED CARE, A&O X4, DENIES CURRENT NEEDS, BRETAHING EVEN UNLABORED, CALL LIGHT IN REACH, BED LOWEST POSITION, ENCOURAGED PT TO NOTIFY STAFF OF ANY NEEDS
[2020-11-29 22:28] VITALS: BP 88/49
[2020-11-30 06:30] LABS: BASOPHILS 0.3 % (0-2); EOSINOPHILS 0.9 % (0-7); HEMATOCRIT 25.1 % (36.0-48.0); HEMOGLOBIN 8.5 g/dL (12-16); IMMATURE GRANULOCYTES 2.5 % (0-5); LYMPHOCYTE ABS# 2.04 10x3/uL (1.18-3.74); LYMPHOCYTES 15.8 % (15-50); MCH 34.7 pg (26.0-34.0); MCHC 33.9 g/dL (31.0-37.0); MCV 102.4 fL (80.0-100.0); MEAN PLATELET VOLUME 11.8 fL (7.4-10.4); MONOCYTES 6.3 % (2-11); NEUTROPHIL ABS# 9.56 10x3/uL (1.56-6.13); NEUTROPHILS 74.2 % (40-80); PLATELET COUNT 84 10x3/uL (130-400); RBC 2.45 10x6/uL (4.00-5.40); RDW 16.5 % (11.5-14.5); RETIC 2.11 % (0.45-2.28); WBC 12.9 10x3/uL (4.8-10.8)
[2020-11-30 06:34] LABS: PLATELET ESTIMATE DECREASED
[2020-11-30 06:54] LABS: % SATURATION 74 % (15-55); INR 1.33 (0.85-1.17); IRON 44 ug/dl (35-150); PROTIME 15.3 SECONDS (11.6-15.0); TOTAL IRON BIND CAPACITY 59 ug/dl (260-445)
[2020-11-30 06:55] LABS: UNSAT IRON BIND CAPACITY 15 ug/dl (150-375)
[2020-11-30 07:17] LABS: ALBUMIN 1.7 g/dL (3.4-5.0); ALKALINE PHOSPHATASE 236 U/L (30-120); ALT (SGPT) 47 U/L (10-68); BILIRUBIN - TOTAL 1.65 mg/dL (0.2-1.3); CALC OSMOLALITY 258 mosm/kg (275-300); CALCIUM 7.5 mg/dL (8.5-10.1); CARBON DIOXIDE 20.3 mmol/L (21.0-32.0); CHLORIDE - SERUM 100 mmol/L (98-107); CREATININE - SERUM 0.7 mg/dL (0.6-1.3); FERRITIN 741 ng/mL (3-244); GLUCOSE 91 mg/dL (74-106); POTASSIUM - SERUM 3.8 mmol/L (3.5-5.1); PROTEIN - SERUM 5.5 g/dL (6.4-8.2); SODIUM 130 mmol/L (136-145); UREA NITROGEN 6 mg/dL (7-18); eGFR NON AFRICAN AMERICAN > 90 mL/min (90-120)
--- NOTE | 2020-11-30 07:57 | NUR ---
PATIENT ON CL FOR BATHROOM ASSISTANCE, NO OTHER NEEDS VOICED AT THIS TIME. RECEIVED CALL FROM SPECIALS IN REGARDS TO DRAIN. NO OTHER NEEDS AT THIS TIME. COTNINUE WITH PLAN OF CARE
[2020-11-30 09:33] VITALS: BP 100/61
[2020-11-30 13:56] VITALS: BP 86/38
[2020-11-30 17:05] VITALS: BP 131/111
[2020-11-30 19:08] LABS: OVA + PARASITE EXAM Final report (())
[2020-11-30 20:00] VITALS: BP 98/44
[2020-12-01 04:00] VITALS: BP 86/40
[2020-12-01 08:02] VITALS: BP 98/63
[2020-12-01 08:57] LABS: BASOPHILS 0.4 % (0-2); EOSINOPHILS 0.7 % (0-7); HEMATOCRIT 24.1 % (36.0-48.0); HEMOGLOBIN 8.2 g/dL (12-16); IMMATURE GRANULOCYTES 2.6 % (0-5); MCH 34.5 pg (26.0-34.0); MCV 101.3 fL (80.0-100.0); MEAN PLATELET VOLUME 12.3 fL (7.4-10.4); MONOCYTES 7.9 % (2-11); NEUTROPHIL ABS# 10.13 10x3/uL (1.56-6.13); NEUTROPHILS 74.4 % (40-80); PLATELET COUNT 85 10x3/uL (130-400); RBC 2.38 10x6/uL (4.00-5.40); RDW 16.1 % (11.5-14.5); WBC 13.6 10x3/uL (4.8-10.8)
[2020-12-01 09:04] LABS: ALBUMIN 1.5 g/dL (3.4-5.0); ALKALINE PHOSPHATASE 248 U/L (30-120); ALT (SGPT) 45 U/L (10-68); BILIRUBIN - TOTAL 1.59 mg/dL (0.2-1.3); CALC OSMOLALITY 263 mosm/kg (275-300); CALCIUM 7.3 mg/dL (8.5-10.1); CARBON DIOXIDE 19.7 mmol/L (21.0-32.0); CHLORIDE - SERUM 103 mmol/L (98-107); CREATININE - SERUM 0.6 mg/dL (0.6-1.3); GLUCOSE 70 mg/dL (74-106); POTASSIUM - SERUM 3.6 mmol/L (3.5-5.1); PROTEIN - SERUM 4.5 g/dL (6.4-8.2); SODIUM 134 mmol/L (136-145); UREA NITROGEN 7 mg/dL (7-18); eGFR NON AFRICAN AMERICAN > 90 mL/min (90-120)
[2020-12-01 09:10] LABS: PLATELET ESTIMATE DECREASED
[2020-12-01 13:19] VITALS: BP 84/37
--- NOTE | 2020-12-01 14:02 | NUR ---
Nutrition Re-Assessment: Had paracentesis day before yesterday with 4700mL fluid removal. Feeling better, eating small amounts at a time. Diet: Regular fluid restriction PO intake: none recorded in EMR recently. PO intake was 0-20% on 11/27/20. Last BM: 12/01/20 x 8 Wt: 173# (11/25/20) Meds noted: miralax, NS@100, abx Labs noted: Glu 70(L), alb 1.5(L) Estimated nutrition needs: 0285-9277 pam (25-30 IBW), 60-75gms protein (1-1.2), fluid restriction per MD Nutrition Diagnosis: Inadquate oral intake r/t early satiety AEB PO intake. Nutrition goals: -PO intake will increase to >65% average -Dry weight stable Recommendations/Interventions: -Will continue to provide food choices and honor food preferences -RD will follow-up 12/04/20
[2020-12-01 17:07] VITALS: BP 90/58
[2020-12-01 17:18] VITALS: BP 92/50
[2020-12-01 20:00] VITALS: BP 84/49
[2020-12-02 04:00] VITALS: BP 108/63
--- NOTE | 2020-12-02 06:04 | NUR ---
I have reviewed this patient and I concur with the Shift Assessment completed by the Licensed Practical Nurse today this shift.
[2020-12-02 06:48] LABS: BASOPHILS 0.4 % (0-2); EOSINOPHILS 0.9 % (0-7); HEMATOCRIT 25.2 % (36.0-48.0); HEMOGLOBIN 8.6 g/dL (12-16); IMMATURE GRANULOCYTES 3.9 % (0-5); MCH 34.7 pg (26.0-34.0); MCHC 34.1 g/dL (31.0-37.0); MCV 101.6 fL (80.0-100.0); MEAN PLATELET VOLUME 12.1 fL (7.4-10.4); NEUTROPHIL ABS# 11.68 10x3/uL (1.56-6.13); NEUTROPHILS 72.8 % (40-80); PLATELET COUNT 97 10x3/uL (130-400); RBC 2.48 10x6/uL (4.00-5.40); RDW 16.7 % (11.5-14.5)
--- NOTE | 2020-12-02 07:40 | NUR ---
RECIEVED BEDSIDE REPORT. AROUSES TO VOICE. DENIES NEEDS AT THIS TIME. BED LOW POSITION, CALL LIGHT IN REACH. WILL CONTINUE TO MONITOR.
[2020-12-02 07:41] LABS: ALBUMIN 1.6 g/dL (3.4-5.0); ALKALINE PHOSPHATASE 249 U/L (30-120); ALT (SGPT) 43 U/L (10-68); BILIRUBIN - TOTAL 1.48 mg/dL (0.2-1.3); CALC OSMOLALITY 264 mosm/kg (275-300); CALCIUM 7.8 mg/dL (8.5-10.1); CHLORIDE - SERUM 103 mmol/L (98-107); CREATININE - SERUM 0.7 mg/dL (0.6-1.3); GLUCOSE 74 mg/dL (74-106); POTASSIUM - SERUM 3.4 mmol/L (3.5-5.1); PROTEIN - SERUM 5.4 g/dL (6.4-8.2); SODIUM 134 mmol/L (136-145); UREA NITROGEN 8 mg/dL (7-18); eGFR NON AFRICAN AMERICAN > 90 mL/min (90-120)
[2020-12-02 08:28] VITALS: BP 90/60
[2020-12-02 12:54] VITALS: BP 90/53
[2020-12-02 16:09] LABS: OVA + PARASITE EXAM Final report (())
[2020-12-02 16:23] VITALS: BP 102/62
[2020-12-02 20:00] VITALS: BP 99/58
[2020-12-03] VITALS: BP 93/44
--- NOTE | 2020-12-03 01:01 | NUR ---
PT RESTING IN BED. NO COMPLAINTS OF PAIN NOR DISCOMFORT AT THIS TIME. ABLE TO MAKE WANTS AND NEEDS KNOWN CLEARLY. NEW IV TO THE RIGHT AC WAS PLACED. BED IN LOWEST POSITION WITH CALL LIGHT IN REACH.
[2020-12-03 04:00] VITALS: BP 102/59; BP 86/40
[2020-12-03 06:39] LABS: HEMATOCRIT 23.2 % (36.0-48.0); HEMOGLOBIN 7.9 g/dL (12-16); LYMPHOCYTE ABS# 1.99 10x3/uL (1.18-3.74); MCH 34.6 pg (26.0-34.0); MCHC 34.1 g/dL (31.0-37.0); MCV 101.8 fL (80.0-100.0); MEAN PLATELET VOLUME 12.3 fL (7.4-10.4); NEUTROPHIL ABS# 10.57 10x3/uL (1.56-6.13); PLATELET COUNT 101 10x3/uL (130-400); RBC 2.28 10x6/uL (4.00-5.40); RDW 16.8 % (11.5-14.5); WBC 14.3 10x3/uL (4.8-10.8)
[2020-12-03 06:41] LABS: ALBUMIN 1.4 g/dL (3.4-5.0); ALKALINE PHOSPHATASE 225 U/L (30-120); BILIRUBIN - TOTAL 1.49 mg/dL (0.2-1.3); CALC OSMOLALITY 267 mosm/kg (275-300); CALCIUM 7.8 mg/dL (8.5-10.1); CARBON DIOXIDE 20.1 mmol/L (21.0-32.0); CHLORIDE - SERUM 105 mmol/L (98-107); CREATININE - SERUM 0.7 mg/dL (0.6-1.3); GLUCOSE 94 mg/dL (74-106); POTASSIUM - SERUM 3.7 mmol/L (3.5-5.1); PROTEIN - SERUM 4.9 g/dL (6.4-8.2); SODIUM 135 mmol/L (136-145); UREA NITROGEN 8 mg/dL (7-18); eGFR NON AFRICAN AMERICAN > 90 mL/min (90-120)
[2020-12-03 06:43] LABS: ALT (SGPT) 28 U/L (10-68)
[2020-12-03 07:03] LABS: EOSINOPHILS 1 % (0-7); LYMPHOCYTES 17 % (15-50); MONOCYTES 6 % (2-11); NEUTROPHILS 70 % (40-80); PLATELET ESTIMATE DECREASED
[2020-12-03 07:04] LABS: ANISOCYTOSIS 1+; POIKILOCYTOSIS 1+; TARGET CELLS OCC
[2020-12-03 07:05] LABS: HYPOCHROMASIA 1+
[2020-12-03 09:19] VITALS: BP 90/32
[2020-12-03 12:50] VITALS: BP 104/54
--- NOTE | 2020-12-03 13:53 | NUR ---
REHAB PRESCREEN RECEIVED. PATIENT IS A MANGAGED MEDICARE AND WILL REQUIRE AT LEAST 2 THERAPIES TO BE CONSIDERED APPROPRIATE OR NOT. WE WILL CONTINUE TO FOLLOW UNTIL THESE ARE COMPLETED AND THEN IF SHE MEETS INPATIENT CRITERIA, WE WILL SUBMIT PAPERWORK FOR AUTHORIZATION. THANK YOU FOR THIS REFERRAL. NOHELIA MALAVE RN CLINICAL LIAISON, INPATIENT REHAB.
[2020-12-03 16:12] VITALS: BP 92/56
[2020-12-03 20:00] VITALS: BP 92/54
--- NOTE | 2020-12-03 21:18 | NUR ---
PT WAS ASLEEP UPON ARRIVAL OF ASSESSMENT. EASY TO AROUSE. NO COMPLAINTS OF PAIN NOR DISTRESS NOTED AT THIS TIME. ABLE TO MAKE WANTS AND NEEDS KNOWN AT THIS TIME. BED IN LOW POSTION WITH CALL LIGHT IN REACH.
[2020-12-04] VITALS: BP 105/57
[2020-12-04 04:00] VITALS: BP 100/49
[2020-12-04 07:07] LABS: BILIRUBIN 2+ (NEGATIVE); KETONE NEGATIVE (NEGATIVE); NITRITE NEGATIVE (NEGATIVE); UROBILINOGEN 4 mg/dL (< 2)
[2020-12-04 07:09] LABS: BACTERIA MANY HPF (NONE SEEN)
[2020-12-04 07:14] LABS: ALBUMIN 1.4 g/dL (3.4-5.0); ALKALINE PHOSPHATASE 235 U/L (30-120); ALT (SGPT) 34 U/L (10-68); BILIRUBIN - TOTAL 2.11 mg/dL (0.2-1.3); CALC OSMOLALITY 271 mosm/kg (275-300); CALCIUM 7.9 mg/dL (8.5-10.1); CARBON DIOXIDE 21.1 mmol/L (21.0-32.0); CHLORIDE - SERUM 105 mmol/L (98-107); CREATININE - SERUM 0.8 mg/dL (0.6-1.3); GLUCOSE 98 mg/dL (74-106); SODIUM 137 mmol/L (136-145); UREA NITROGEN 8 mg/dL (7-18); eGFR NON AFRICAN AMERICAN 79 mL/min (90-120)
--- NOTE | 2020-12-04 07:59 | NUR ---
RESTING IN BED WITH EYES OPEN, ALERT AND ORIENTED. IV LOCATED TO RIGHT AC CURRENTLY RUNNING NS @ 100. NO CURRENT S/S OF DISTRESS AT THIS TIME, DENIES CURRENT NEEDS, WILL CONT TO MONITOR.
[2020-12-04 09:24] LABS: BASOPHILS 0.3 % (0-2); EOSINOPHILS 0.9 % (0-7); HEMOGLOBIN 11.3 g/dL (12-16); IMMATURE GRANULOCYTES 1.6 % (0-5); LYMPHOCYTE ABS# 1.66 10x3/uL (1.18-3.74); LYMPHOCYTES 10.5 % (15-50); MCH 31.9 pg (26.0-34.0); MCHC 34.2 g/dL (31.0-37.0); MCV 93.2 fL (80.0-100.0); MEAN PLATELET VOLUME 12.3 fL (7.4-10.4); MONOCYTES 6.9 % (2-11); NEUTROPHIL ABS# 12.67 10x3/uL (1.56-6.13); NEUTROPHILS 79.8 % (40-80); PLATELET COUNT 101 10x3/uL (130-400); RBC 3.54 10x6/uL (4.00-5.40); RDW 21.4 % (11.5-14.5); WBC 15.9 10x3/uL (4.8-10.8)
[2020-12-04 09:40] VITALS: BP 90/61
--- NOTE | 2020-12-04 12:40 | NUR ---
RCVED PT VIA HOSPITAL STAFF AND HOSPITAL BED. ALERT BUT CONFUSED AT TIMES, V/S STABLE. IV LOCATED TO RIGHT AC CURRENTLY SL. DENIES CURRENT NEEDS, WILL CONT TO MONITOR.
--- NOTE | 2020-12-04 12:54 | NUR ---
OT NOTE: PT INITIALLY RESISTANT TO GET OUT OF BED OR PERFORM ADLS. PREPARED BASIN OF WATER AND WARM CLOTHS.. PT STATED THAT SHE HAD JUST FINISHED GETTING A BATH THIS AM.. ALLOWED PT TO SOAK HER NAILS FOLLOWED BY THERAPIST CLEANING.. PT ABLE TO WASH FACE AND HANDS WITH SET U P. SUPINE TO SIT WITH MIN ASSIST; EOB SITTING WITH SPV; UE/LE EXS WHILE ON EOB; TRANSFER TO COMODE WITH MIN ASSIST; MAX ASSIST WITH TOILET HYGIENE. SABRINA PERSON, OTR/L [phone]
--- NOTE | 2020-12-04 13:44 | NUR ---
THANK YOU FOR THIS REFERRAL. WE WILL CONTINUE TO FOLLOW PATIENT IS NOT MEDICALLY STABLE AT THIS TIME. MADAN JIM LPN CLINICAL LIAISON
--- NOTE | 2020-12-04 14:56 | NUR ---
Nutrition Follow-up: Diet: Regular fluid restriction PO intake: 25% of breakfast. States that she gets full quickly. Gets hungry an hour or two after meals because she is not able to eat much at one time. Last BM: 12/03/20 x 2 Wt: 173# (11/25/20), no new weight Meds noted: probiotics, abx, lasix, NS@100 Labs noted: K 3.0(L) Recommend: -Needs new weight -Continue Regular diet. Fluid restrictions per MD. -Will continue to honor food preferences. -Encouraged patient to order extra foods on meal trays that she can keep on bedside table to allow her to have small frequent meals. -RD will follow-up 12/08/20.
[2020-12-04 14:59] VITALS: BP 98/62
--- NOTE | 2020-12-04 15:36 | NUR ---
OT NOTE: PT COMPLETED BSC TSF WITH MIN A. PT COMPLETED TOILETING HYGIENE WITH MAX A. PT COMPLETED HAND HYGIENE WITH SETUP. PT REQUIRED MIN A FOR SIT TO SUPINE IN BED. [phone] JSASON SEARS COTA
[2020-12-04 17:32] VITALS: BP 107/64
[2020-12-04 21:31] VITALS: BP 112/66
--- NOTE | 2020-12-04 22:52 | NUR ---
PT WATCHING TV IN BED. NO COMPLAINTS OF PAIN NOR DISTRESS NOTED AT THIS TIME. PT DID HAVE A SMALL BOWEL MOVEMENT. SEMI FORMED, SOFT. ABLE TO MAKE WANTS AND NEEDS KNOWN TO STAFF. BED IN LOWEST POSITION, CALL LIGHT IN REACH.
[2020-12-05 01:08] VITALS: BP 93/49
[2020-12-05 05:41] VITALS: BP 114/60
[2020-12-05 07:23] LABS: BASOPHILS 0.3 % (0-2); EOSINOPHILS 0.9 % (0-7); HEMATOCRIT 30.9 % (36.0-48.0); HEMOGLOBIN 10.6 g/dL (12-16); LYMPHOCYTE ABS# 1.58 10x3/uL (1.18-3.74); LYMPHOCYTES 10.4 % (15-50); MCH 32.2 pg (26.0-34.0); MCHC 34.3 g/dL (31.0-37.0); MCV 93.9 fL (80.0-100.0); MEAN PLATELET VOLUME 12.3 fL (7.4-10.4); MONOCYTES 6.9 % (2-11); NEUTROPHILS 80.5 % (40-80); PLATELET COUNT 101 10x3/uL (130-400); RBC 3.29 10x6/uL (4.00-5.40); RDW 21.6 % (11.5-14.5); WBC 15.2 10x3/uL (4.8-10.8)
[2020-12-05 07:35] LABS: ALBUMIN 1.3 g/dL (3.4-5.0); ALKALINE PHOSPHATASE 235 U/L (30-120); ALT (SGPT) 30 U/L (10-68); BILIRUBIN - TOTAL 1.58 mg/dL (0.2-1.3); CALC OSMOLALITY 269 mosm/kg (275-300); CALCIUM 7.7 mg/dL (8.5-10.1); CARBON DIOXIDE 18.4 mmol/L (21.0-32.0); CHLORIDE - SERUM 107 mmol/L (98-107); CREATININE - SERUM 0.6 mg/dL (0.6-1.3); GLUCOSE 82 mg/dL (74-106); MAGNESIUM - SERUM 1.5 mg/dL (1.8-2.4); POTASSIUM - SERUM 3.4 mmol/L (3.5-5.1); PROTEIN - SERUM 4.4 g/dL (6.4-8.2); SODIUM 136 mmol/L (136-145); UREA NITROGEN 9 mg/dL (7-18); eGFR NON AFRICAN AMERICAN > 90 mL/min (90-120)
--- NOTE | 2020-12-05 07:40 | NUR ---
RECIEVED BEDSIDE REPORT. AROUSES TO VOICE. DENIES NEEDS AT THIS TIME. BED LOW POSITION, CALL LIGHT IN REACH. WILL CONTINUE TO MONITOR.
[2020-12-05 09:07] VITALS: BP 117/72
[2020-12-05 14:06] VITALS: BP 157/48
[2020-12-05 16:12] VITALS: BP 104/52
[2020-12-05 20:00] VITALS: BP 101/56
[2020-12-06] VITALS: BP 107/61
[2020-12-06 04:00] VITALS: BP 118/71
[2020-12-06 06:27] LABS: BASOPHILS 0.3 % (0-2); EOSINOPHILS 0.9 % (0-7); HEMATOCRIT 30.2 % (36.0-48.0); HEMOGLOBIN 10.3 g/dL (12-16); IMMATURE GRANULOCYTES 0.6 % (0-5); LYMPHOCYTE ABS# 1.38 10x3/uL (1.18-3.74); LYMPHOCYTES 9.6 % (15-50); MCHC 34.1 g/dL (31.0-37.0); MCV 93.8 fL (80.0-100.0); MEAN PLATELET VOLUME 11.9 fL (7.4-10.4); MONOCYTES 6.8 % (2-11); NEUTROPHIL ABS# 11.73 10x3/uL (1.56-6.13); NEUTROPHILS 81.8 % (40-80); PLATELET COUNT 110 10x3/uL (130-400); RBC 3.22 10x6/uL (4.00-5.40); RDW 21.3 % (11.5-14.5); WBC 14.3 10x3/uL (4.8-10.8)
[2020-12-06 06:30] LABS: ALBUMIN 1.5 g/dL (3.4-5.0); ALKALINE PHOSPHATASE 236 U/L (30-120); ALT (SGPT) 29 U/L (10-68); BILIRUBIN - TOTAL 1.45 mg/dL (0.2-1.3); CALC OSMOLALITY 272 mosm/kg (275-300); CALCIUM 7.9 mg/dL (8.5-10.1); CHLORIDE - SERUM 107 mmol/L (98-107); CREATININE - SERUM 0.7 mg/dL (0.6-1.3); GLUCOSE 107 mg/dL (74-106); MAGNESIUM - SERUM 1.5 mg/dL (1.8-2.4); POTASSIUM - SERUM 3.3 mmol/L (3.5-5.1); PROTEIN - SERUM 5.1 g/dL (6.4-8.2); SODIUM 137 mmol/L (136-145); UREA NITROGEN 10 mg/dL (7-18); eGFR NON AFRICAN AMERICAN > 90 mL/min (90-120)
--- NOTE | 2020-12-06 07:30 | NUR ---
RECIEVED BEDSIDE REPORT. BED LOW POITION, PATIENT AROUSES TO VOICE. DENIES NEEDS. FREE FROM SIGNS OF DISTRESS. WILL CONTINUE TO MONITOR.
[2020-12-06 07:40] VITALS: BP 104/63
[2020-12-06 08:29] VITALS: BP 121/79
[2020-12-06 13:34] VITALS: BP 119/63
[2020-12-06 17:30] VITALS: BP 116/76
--- NOTE | 2020-12-06 17:34 | NUR ---
DIRECTOR CAMP LIGHT. NEEDED TO USE THE BED ARMAS. URINATED 300 ML. DENIES FURTHER NEEDS AT THIS TIME. BED LOW POSITION, CALL LIGHT IN REACH. WILL CONTINUE TO MONITOR.
[2020-12-07] VITALS: BP 104/55
[2020-12-07 04:00] VITALS: BP 110/68
[2020-12-07 06:28] LABS: BASOPHILS 0.3 % (0-2); EOSINOPHILS 1.2 % (0-7); HEMATOCRIT 30.8 % (36.0-48.0); HEMOGLOBIN 10.4 g/dL (12-16); IMMATURE GRANULOCYTES 0.5 % (0-5); LYMPHOCYTE ABS# 1.53 10x3/uL (1.18-3.74); LYMPHOCYTES 10.1 % (15-50); MCH 31.9 pg (26.0-34.0); MCHC 33.8 g/dL (31.0-37.0); MCV 94.5 fL (80.0-100.0); MEAN PLATELET VOLUME 11.7 fL (7.4-10.4); MONOCYTES 6.8 % (2-11); NEUTROPHIL ABS# 12.29 10x3/uL (1.56-6.13); NEUTROPHILS 81.1 % (40-80); PLATELET COUNT 130 10x3/uL (130-400); RBC 3.26 10x6/uL (4.00-5.40); RDW 21.3 % (11.5-14.5); WBC 15.1 10x3/uL (4.8-10.8)
[2020-12-07 06:51] LABS: ALBUMIN 1.7 g/dL (3.4-5.0); ANION GAP 14.8 mmol/L (8-16); BILIRUBIN - TOTAL 1.58 mg/dL (0.2-1.3); CARBON DIOXIDE 19.8 mmol/L (21.0-32.0); MAGNESIUM - SERUM 1.6 mg/dL (1.8-2.4); POTASSIUM - SERUM 3.6 mmol/L (3.5-5.1)
[2020-12-07 06:52] LABS: CREATININE - SERUM 0.9 mg/dL (0.6-1.3)
[2020-12-07 08:58] VITALS: BP 116/68
--- NOTE | 2020-12-07 09:42 | NUR ---
PATIENT CONTINUES TO BE MEDIALLY UNSTABLE FOR REHAB. CONTINING TO FOLLOW. MADAN JIM LPN, CLINICAL LIAISON
[2020-12-07 10:21] LABS: INR 1.36 (0.85-1.17); PROTIME 15.6 SECONDS (11.6-15.0)
[2020-12-07 13:53] VITALS: BP 102/64
--- NOTE | 2020-12-07 15:26 | NUR ---
OT NOTE: PT COMPLETED SIT TO STAND WITH MIN A. PT COMPLETED TRANSFERS WITH MIN A. PT COMPLETED FACE AND HAND HYGIENE WITH SETUP. [phone] THANK YOU,YAMINI SHUKLA
[2020-12-07 17:36] VITALS: BP 111/62
[2020-12-08] VITALS: BP 102/46
[2020-12-08 04:00] VITALS: BP 91/48
--- NOTE | 2020-12-08 07:26 | NUR ---
PATIENT DENIES PAIN, SHE HAS BEEN UP MOST OF THE NIGHT, SHE IS CURRENTLY RESTING IN BED WATCHING TV.
[2020-12-08 07:41] LABS: BASOPHILS 0.2 % (0-2); EOSINOPHILS 1.2 % (0-7); HEMATOCRIT 29.2 % (36.0-48.0); HEMOGLOBIN 9.8 g/dL (12-16); IMMATURE GRANULOCYTES 0.4 % (0-5); LYMPHOCYTE ABS# 1.44 10x3/uL (1.18-3.74); LYMPHOCYTES 10.3 % (15-50); MCH 32.1 pg (26.0-34.0); MCHC 33.6 g/dL (31.0-37.0); MCV 95.7 fL (80.0-100.0); MEAN PLATELET VOLUME 11.9 fL (7.4-10.4); MONOCYTES 4.5 % (2-11); NEUTROPHIL ABS# 11.61 10x3/uL (1.56-6.13); NEUTROPHILS 83.4 % (40-80); PLATELET COUNT 134 10x3/uL (130-400); RBC 3.05 10x6/uL (4.00-5.40); RDW 21.4 % (11.5-14.5); WBC 13.9 10x3/uL (4.8-10.8)
[2020-12-08 08:11] LABS: ALBUMIN 1.8 g/dL (3.4-5.0); ALKALINE PHOSPHATASE 221 U/L (30-120); ALT (SGPT) 26 U/L (10-68); BILIRUBIN - TOTAL 1.65 mg/dL (0.2-1.3); CALC OSMOLALITY 277 mosm/kg (275-300); CALCIUM 7.9 mg/dL (8.5-10.1); CARBON DIOXIDE 20.9 mmol/L (21.0-32.0); CHLORIDE - SERUM 107 mmol/L (98-107); CREATININE - SERUM 0.7 mg/dL (0.6-1.3); GLUCOSE 114 mg/dL (74-106); MAGNESIUM - SERUM 1.8 mg/dL (1.8-2.4); POTASSIUM - SERUM 3.2 mmol/L (3.5-5.1); PROTEIN - SERUM 4.7 g/dL (6.4-8.2); SODIUM 139 mmol/L (136-145); UREA NITROGEN 11 mg/dL (7-18); eGFR NON AFRICAN AMERICAN > 90 mL/min (90-120)
[2020-12-08 09:25] VITALS: BP 91/51
[2020-12-08 12:34] LABS: INR 1.38 (0.85-1.17); PROTIME 15.7 SECONDS (11.6-15.0)
[2020-12-08 12:42] VITALS: BP 108/66
--- NOTE | 2020-12-08 13:53 | NUR ---
Nutrition Re-Assessment: Diet: Regular PO intake: ~38% average x last 6 meals. Patient states that she feels that her appetite is a little better. States that she is ordering foods on her meal trays that she can keep on bedside table and snack on between meals. PO intake is likely >38% 2/2 snacking. Last BM: 12/03/20 x 2 Wt: 173# (11/25/20), no new weight Meds noted: probiotics, abx, albumin, lasix, miralax Labs noted: K 3.2(L), Glu 114(H) Estimated nutrition needs: 0586-3865 pam (25-30 IBW), 60-75gms protein (1-1.2), 1500mL or fluid per MD Nutrition diagnosis: Inadequate energy intake r/t inadequate oral intake, early satiety AEB PO intake <50% average. Nutrition goals: -PO intake >65% meals -Dry weight stable Recommendations/Interventions: -Continue Regular diet, encouraged PO intake, encouraged patient to continue to snack between meals to help meet energy needs. -Fluid restriction per MD. -RD will follow-up 12/11/20.
--- NOTE | 2020-12-08 15:27 | NUR ---
OT NOTE: PT COMPLETED SUPINE TO SIT WITH MIN A. PT COMPLETED EOB SITTING WITH SBA. PT COMPLETED BED TO CHAIR TSF WITH MIN A/CGA. PT COMPLETED FACE AND HAND HYGIENE WITH SETUP. [phone] JASSON SEARS COTA
[2020-12-08 20:00] VITALS: BP 95/54
--- NOTE | 2020-12-09 02:50 | NUR ---
PATIENT HAS BEEN UP MOST OF THE NIGHT, SHE IS CURRENTLY WATCHING TV. SHE DENIES PAIN.
[2020-12-09 04:00] VITALS: BP 94/57
[2020-12-09 06:23] LABS: BASOPHILS 0.2 % (0-2); EOSINOPHILS 1.7 % (0-7); HEMATOCRIT 30.1 % (36.0-48.0); IMMATURE GRANULOCYTES 0.3 % (0-5); LYMPHOCYTE ABS# 1.64 10x3/uL (1.18-3.74); LYMPHOCYTES 12.1 % (15-50); MCH 31.9 pg (26.0-34.0); MCHC 33.2 g/dL (31.0-37.0); MCV 96.2 fL (80.0-100.0); MEAN PLATELET VOLUME 12.4 fL (7.4-10.4); MONOCYTES 5.9 % (2-11); NEUTROPHIL ABS# 10.78 10x3/uL (1.56-6.13); NEUTROPHILS 79.8 % (40-80); PLATELET COUNT 133 10x3/uL (130-400); RBC 3.13 10x6/uL (4.00-5.40); RDW 21.3 % (11.5-14.5); WBC 13.5 10x3/uL (4.8-10.8)
[2020-12-09 06:47] LABS: ALBUMIN 1.8 g/dL (3.4-5.0); ALKALINE PHOSPHATASE 208 U/L (30-120); ALT (SGPT) 31 U/L (10-68); BILIRUBIN - TOTAL 1.56 mg/dL (0.2-1.3); CALC OSMOLALITY 276 mosm/kg (275-300); CALCIUM 8.2 mg/dL (8.5-10.1); CARBON DIOXIDE 22.7 mmol/L (21.0-32.0); CHLORIDE - SERUM 107 mmol/L (98-107); CREATININE - SERUM 0.7 mg/dL (0.6-1.3); GLUCOSE 92 mg/dL (74-106); MAGNESIUM - SERUM 1.7 mg/dL (1.8-2.4); PROTEIN - SERUM 5.1 g/dL (6.4-8.2); SODIUM 139 mmol/L (136-145); UREA NITROGEN 11 mg/dL (7-18); eGFR NON AFRICAN AMERICAN > 90 mL/min (90-120)
[2020-12-09 06:51] LABS: POTASSIUM - SERUM 2.9 mmol/L (3.5-5.1)
[2020-12-09 06:53] LABS: INR 1.51 (0.85-1.17); PROTIME 16.9 SECONDS (11.6-15.0)
--- NOTE | 2020-12-09 08:18 | NUR ---
GAVE DR GARCIA CONSULT, HE WILL SEE PT AND ASSESS SITUATION AND THEN MAKE A DECISION ON PLAN
[2020-12-09 09:01] VITALS: BP 104/66
--- NOTE | 2020-12-09 11:00 | NUR ---
UP IN CHAIR, NO DISTRESS NOTED, SL TO R HAND, CONT TO MONITOR ASCITES AND EDEMA
[2020-12-09 13:55] VITALS: BP 102/45
--- NOTE | 2020-12-09 15:11 | NUR ---
OT NOTE: PT EXHIBITED SELF LIMITING BEHAVIOR. PT COMPLETED SUPINE TO SIT SBA. PT COMPLETED SIT TO STAND WITH SBA. PT COMPLETED FACE HYGIENE WITH SETUP. PT COMPLETED EOB SITTING BALANCE WITH SPV. [phone] JASSON HUFFMAN COTA
[2020-12-09 17:46] VITALS: BP 89/48
[2020-12-09 20:00] VITALS: BP 98/59
[2020-12-10 03:40] VITALS: BP 101/61
--- NOTE | 2020-12-10 04:32 | NUR ---
PATIENT REFUSED SCD'S, BUT WAS COMPLIANT WITH THE INCENTIVE SPIROMETER. SHE APPEARED TO SLEEP WELL. SHE IS CURRENTLY RESTING IN BED WATCHING TV.
[2020-12-10 06:14] LABS: INR 1.49 (0.85-1.17); PROTIME 16.7 SECONDS (11.6-15.0)
[2020-12-10 06:34] LABS: ALBUMIN 1.7 g/dL (3.4-5.0); ALKALINE PHOSPHATASE 207 U/L (30-120); BILIRUBIN - TOTAL 1.53 mg/dL (0.2-1.3); CALC OSMOLALITY 278 mosm/kg (275-300); CALCIUM 8.1 mg/dL (8.5-10.1); CARBON DIOXIDE 21.2 mmol/L (21.0-32.0); CHLORIDE - SERUM 108 mmol/L (98-107); CREATININE - SERUM 0.7 mg/dL (0.6-1.3); GLUCOSE 109 mg/dL (74-106); POTASSIUM - SERUM 3.3 mmol/L (3.5-5.1); PROTEIN - SERUM 4.9 g/dL (6.4-8.2); SODIUM 139 mmol/L (136-145); UREA NITROGEN 12 mg/dL (7-18); eGFR NON AFRICAN AMERICAN > 90 mL/min (90-120)
[2020-12-10 06:36] LABS: ALT (SGPT) 23 U/L (10-68)
[2020-12-10 06:56] LABS: BASOPHILS 0.2 % (0-2); EOSINOPHILS 1.9 % (0-7); HEMATOCRIT 29.4 % (36.0-48.0); HEMOGLOBIN 9.9 g/dL (12-16); IMMATURE GRANULOCYTES 0.3 % (0-5); LYMPHOCYTE ABS# 1.28 10x3/uL (1.18-3.74); LYMPHOCYTES 10.6 % (15-50); MCH 32.6 pg (26.0-34.0); MCHC 33.7 g/dL (31.0-37.0); MCV 96.7 fL (80.0-100.0); MEAN PLATELET VOLUME 11.9 fL (7.4-10.4); MONOCYTES 7.2 % (2-11); NEUTROPHILS 79.8 % (40-80); PLATELET COUNT 108 10x3/uL (130-400); RBC 3.04 10x6/uL (4.00-5.40); RDW 21.2 % (11.5-14.5); WBC 12.1 10x3/uL (4.8-10.8)
[2020-12-10 08:57] VITALS: BP 98/51
--- NOTE | 2020-12-10 10:30 | NUR ---
THANK YOU FOR THIS REFERRAL. WE HAVE CONTINUED TO FOLLOW BUT HAVE DETERMINED SHE WILL NOT BE APPROPRIATE FOR IFR DUE TO CONTINUING TO REQUIRE PARACENTESIS. ECHO Morales, GLASS BLOWING INSTRUCTOR NOTIFIED. MADAN JIM LPN, CLINICAL LIAISON
[2020-12-10 13:09] VITALS: BP 96/55
--- NOTE | 2020-12-10 13:18 | NUR ---
OT NOTE: PT COMPLETED SUPINE TO SIT WITH CGA. PT COMPLETED ADL MOB WITH RW WITH CGA. PT EXHBITED POOR PLUS ACTIVITY TOLERANCE WITH DYNAMIC TASKS. PT COMPLETED FACE AND HYGIENE TASKS WITH SETUP. [phone] JASSON SAERS COTA
[2020-12-10] MEDS ORDERED: ALBUTEROL2.5 MG/3 M UPD (13:40)
[2020-12-10] MEDS ORDERED: MIDODRINE HCL5 MG PO (13:40)
[2020-12-10] MEDS ORDERED: ALDACTONE25 MG PO (13:40)
[2020-12-10] MEDS ORDERED: FLORAJEN DIGES1 EACH PO (13:41)
[2020-12-10] MEDS ORDERED: LASIX20 MG PO (13:42)
--- NOTE | 2020-12-10 14:07 | MORECARE ---
CASE MANAGEMENT DISCHARGE SUMMARY PATIENT: GERRY BERNAL UNIT: [id number] ADM DATE: 11/24/20 AGE: 55 : 65 SEX: F ROOM/BED: D.2229 AUTHOR: RAOUL,DOC PHYSICIAN: REFERRING PHYSICIAN: COBY RODRIGUEZ MD DATE OF SERVICE: 12/10/20 Case Management Discharge Planning Summary COMMENTS ENTERED DATE: 12/10/20 13:53 CT COMMENT TYPE: Discharge Planning REVIEWER: Natalia Gross CM MET WITH PATIENT AT BEDSIDE FOR DISCHARGE PLANNING NEEDS. DISCUSSED REHAB WITH HER AND SHE DECLINES REHAB, STATES WANTS TO GO HOME. IS AGREEABLE TO HOME HEALTH. STATES SON LIVES WITH HER AND HE HELPS HER. SHE HAS WALKER, BEDSIDE COMMODE AND SHOWER CHAIR AT HOME. PCP IS DR. SEGAL AND SHE USES [facility]. PATIENT GAVE PERMISION FOR ME TO SPEAK WITH HER SON. I SPOKE WITH HIM VIA TELEPHONE AND HE AGREES WITH DC PLAN. KISHORE SIGNED FOR CARE 4HH AND IMM SIGNED AND COPY PLACED ON CHART. DCP REVIEW SUMMARY ANTICIPATED D/C DATE: EXPECTED LOS : CASE STATUS: DCP Initiated INITIAL REVIEW: 11/24/2020 INITIAL REVIEWER: Natalia Gross FINAL DISCHARGE DISPOSITION: : FINAL REVIEWER: FINAL REVIEW DATE: DCP Focus Questions & Answers QUESTION: ANSWER : PATIENT: GERRY BERNAL ENCOUNTER: [id number] MEDICAL RECORD#: [id number] ADMISSION DATE: 11/24/2020 DISCHARGE DATE: ATTENDING MD: : AGE: 55 MARITAL STATUS: S DC PLAN ID: [id number] FACILITY: [facility] PRINTED ON: 12/10/20 14:07 CT All edits/amendments must be made on the electronic document DICTATION DATE: 12/10/201406 EQUINE INTERNSHIP: COOPER 12/10/201406 RPT#: [id number] DC DATE: STATUS: ADM IN [facility] [address] [place] [address] END OF REPORT
[2020-12-10] MEDS ORDERED: FLUCONAZOLE150 MG PO (15:35)
--- NOTE | 2020-12-10 17:47 | NUR ---
0700 BEDSIDE REPORT RECEIVED AWAKE ALERT SITTING UP IN BED WITH A SMILE ON HER FACE VOICES NO COMPLAINTS
--- NOTE | 2020-12-10 17:49 | NUR ---
0116 WRITTEN AND VERBAL DISCHARGE INSTRUCTION GIVEN D/C IV HANDOUTS PROVIDED WITH EXPLAINATION INSTRUCTED PT THAQT DIFLUC[facility] RX WAS SENT TO [facility] ON [address] VERBALIZED UNDERSTAINING
--- NOTE | 2020-12-10 17:52 | NUR ---
1643 RIDE HERRE TRANSPORTED VIA TO CAR
--- NOTE | 2020-12-11 09:40 | MORECARE ---
CASE MANAGEMENT DISCHARGE SUMMARY PATIENT: GERRY BERNAL UNIT: [id number] ADM DATE: 11/24/20 AGE: 55 : 65 SEX: F ROOM/BED: D.2229 AUTHOR: RAOUL,DOC PHYSICIAN: REFERRING PHYSICIAN: COBY RODRIGUEZ MD DATE OF SERVICE: 12/11/20 Case Management Discharge Planning Summary COMMENTS ENTERED DATE: 12/10/20 13:53 CT COMMENT TYPE: Discharge Planning REVIEWER: Natalia Gross CM MET WITH PATIENT AT BEDSIDE FOR DISCHARGE PLANNING NEEDS. DISCUSSED REHAB WITH HER AND SHE DECLINES REHAB, STATES WANTS TO GO HOME. IS AGREEABLE TO HOME HEALTH. STATES SON LIVES WITH HER AND HE HELPS HER. SHE HAS WALKER, BEDSIDE COMMODE AND SHOWER CHAIR AT HOME. PCP IS DR. SEGAL AND SHE USES [facility]. PATIENT GAVE PERMISION FOR ME TO SPEAK WITH HER SON. I SPOKE WITH HIM VIA TELEPHONE AND HE AGREES WITH DC PLAN. KISHORE SIGNED FOR CARE 4HH AND IMM SIGNED AND COPY PLACED ON CHART. DCP REVIEW SUMMARY ANTICIPATED D/C DATE: EXPECTED LOS : CASE STATUS: DCP Initiated INITIAL REVIEW: 11/24/2020 INITIAL REVIEWER: Natalia Gross FINAL DISCHARGE DISPOSITION: : FINAL REVIEWER: FINAL REVIEW DATE: DCP [facility] Questions & Answers QUESTION: ANSWER : PROVIDER NETWORKING REVIEW DATE: 12/10/2020 SERVICE TYPE: Home Health Care REVIEWER: Natalia Gross PATIENT: GERRY BERNAL ENCOUNTER: [id number] MEDICAL RECORD#: [id number] ADMISSION DATE: 11/24/2020 DISCHARGE DATE: 12/10/2020 ATTENDING MD: CHACHA: AGE: 55 MARITAL STATUS: S DC PLAN ID: [id number] FACILITY: [facility] PRINTED ON: 12/11/20 9:39 CT All edits/amendments must be made on the electronic document DICTATION DATE: 12/11/20938 ENROLLMENT ADVISOR: COOPER 12/11/20938 RPT#: [id number] DC DATE:12/10/20 STATUS: DIS IN [facility] [address] [place] [address] END OF REPORT
--- NOTE | 2020-12-11 13:53 | MORECARE ---
CASE MANAGEMENT DISCHARGE SUMMARY PATIENT: GERRY BERNAL UNIT: [id number] ADM DATE: 11/24/20 AGE: 55 : 65 SEX: F ROOM/BED: D.2229 AUTHOR: RAOUL,DOC PHYSICIAN: REFERRING PHYSICIAN: COBY RODRIGUEZ MD DATE OF SERVICE: 12/11/20 Case Management Discharge Planning Summary COMMENTS ENTERED DATE: 12/10/20 13:53 CT COMMENT TYPE: Discharge Planning REVIEWER: Natalia Gross CM MET WITH PATIENT AT BEDSIDE FOR DISCHARGE PLANNING NEEDS. DISCUSSED REHAB WITH HER AND SHE DECLINES REHAB, STATES WANTS TO GO HOME. IS AGREEABLE TO HOME HEALTH. STATES SON LIVES WITH HER AND HE HELPS HER. SHE HAS WALKER, BEDSIDE COMMODE AND SHOWER CHAIR AT HOME. PCP IS DR. SEGAL AND SHE USES [facility]. PATIENT GAVE PERMISION FOR ME TO SPEAK WITH HER SON. I SPOKE WITH HIM VIA TELEPHONE AND HE AGREES WITH DC PLAN. KISHORE SIGNED FOR CARE 4HH AND IMM SIGNED AND COPY PLACED ON CHART. DCP REVIEW SUMMARY ANTICIPATED D/C DATE: EXPECTED LOS : CASE STATUS: DCP Initiated INITIAL REVIEW: 11/24/2020 INITIAL REVIEWER: Natalia Gross FINAL DISCHARGE DISPOSITION: : FINAL REVIEWER: FINAL REVIEW DATE: DCP [facility] Questions & Answers QUESTION: ANSWER : PROVIDER NETWORKING REVIEW DATE: 12/10/2020 SERVICE TYPE: Home Health Care REVIEWER: Natalia Gross PATIENT: GERRY BERNAL ENCOUNTER: [id number] MEDICAL RECORD#: [id number] ADMISSION DATE: 11/24/2020 DISCHARGE DATE: 12/10/2020 ATTENDING MD: CHACHA: AGE: 55 MARITAL STATUS: S DC PLAN ID: [id number] FACILITY: [facility] PRINTED ON: 12/11/20 13:52 CT All edits/amendments must be made on the electronic document DICTATION DATE: 12/11/20 135 BOIL OFF MACHINE OPERATOR CLOTH: COOPER 12/11/20 135 RPT#: [id number] DC DATE:12/10/20 STATUS: DIS IN [facility] [address] [place] [address] END OF REPORT
== END 2020-12-10 17:58 | disposition home health service (06) | DRG 441 ==
LOC: D.ER 15:11 → D.ICU 20:23 → D.MS 11-26 15:07
PROVIDERS: Emergency Medicine; Family Medicine; General Practice; Specialist; ADMIT Family Medicine; ATTEND Family Medicine
PROC: 0W9G3ZZ Drainage of Peritoneal Cavity, Percutaneous Approach (ICD-10-PCS; principal; 2020-11-30 09:15)
PROC: 0W9G3ZZ Drainage of Peritoneal Cavity, Percutaneous Approach (ICD-10-PCS; 2020-12-07)
DX: E80.6 Other disorders of bilirubin metabolism (principal); G93.41 Metabolic encephalopathy; R18.8 Other ascites; N39.0 Urinary tract infection, site not specified; E87.1 Hypo-osmolality and hyponatremia; F17.213 Nicotine dependence, cigarettes, with withdrawal; D61.818 Other pancytopenia; R74.01 Elevation of levels of liver transaminase levels; D69.6 Thrombocytopenia, unspecified; I10 Essential (primary) hypertension; K21.9 Gastro-esophageal reflux disease without esophagitis; F41.8 Other specified anxiety disorders; M19.90 Unspecified osteoarthritis, unspecified site